=== PATIENT | male | born 1960 | race Caucasian/White ===

== ENCOUNTER 2021-04-29 06:24 | Outpatient (REF) | payer OTHER, SELFPAY ==
[2021-04-29 07:28] LABS: MANUAL DIFF FLAG NO
[2021-04-29 07:32] LABS: Basophils Percent Auto 0.5 % (0-2); Eosinophils Absolute Auto 0.3 X10*3/uL (0.0-0.4); Eosinophils Percent Auto 3.9 % (0-4); Hematocrit 45.3 % (42-52); Hemoglobin 14.6 g/dl (14.0-18.0); Imm Gran Abs Auto 0.03 X10*3/uL (0.00-0.03); Imm Gran Pct Auto 0.5 % (0.0-0.4); Lymphocytes Absolute Auto 1.4 X10*3/uL (1.2-4.9); Mean Corpuscular HGB Conc 32.2 g/dl (31.0-36.0); Mean Corpuscular Hemoglobin 25.8 pg (27.0-33.0); Mean Platelet Volume 10.4 fL (9.4-12.4); Monocytes Absolute Auto 0.4 X10*3/uL (0.1-1.2); Monocytes Percent Auto 6.2 % (2-11); Neutrophils Absolute Auto 4.5 X10*3/uL (2.0-8.3); Neutrophils Percent Auto 67.9 % (45-73); Platelet Count 173 X10*3/uL (160-400); Red Blood Count 5.66 X10*6/uL (4.60-5.80); Red Cell Distribution Width 13.2 % (11.0-16.0); White Blood Count 6.7 X10*3/uL (4.8-10.8)
[2021-04-29 08:00] LABS: Alanine Aminotransferase 13 U/L (0-40); Albumin Level 4.4 g/dL (3.5-5.0); Alkaline Phosphatase 74 U/L (39-117); Anion Gap 10 (12-20); Aspartate Amino Transferase 15 U/L (5-37); Bilirubin Total 0.4 mg/dL (0.0-1.0); Blood Urea Nitrogen 15 mg/dL (9-16); Calcium 9.1 mg/dL (8.4-10.2); Carbon Dioxide 26 mmol/L (22-29); Chloride 110 mmol/L (96-108); Cholesterol 170 mg/dL; Estimated Glomerular Filt Rate > 60; Glucose Fasting 109 mg/dL (60-99); HDL Cholesterol 41 mg/dL; LDL Cholesterol Calculated 108 mg/dl; Potassium 4.3 mmol/L (3.3-5.1); Sodium 142 mmol/L (135-145); Total Protein 6.9 g/dL (6.5-8.0); Triglycerides 106 mg/dL
[2021-04-29 08:13] LABS: Prostate Specific Antigen 2.04 ng/mL (<0.05-4.0)
== END 2021-04-29 06:25 | disposition home or self-care (01) ==
LOC: HO.LAB 06:24
PROVIDERS: PCP Internal Medicine; Visit Provider Internal Medicine
DX: Z00.00 Encounter for general adult medical examination without abnormal findings (principal); Z13.220 Encounter for screening for lipoid disorders; Z12.5 Encounter for screening for malignant neoplasm of prostate
CPT/HCPCS: 36415; 80053; 80061; 84153; 85025

== ENCOUNTER 2021-06-22 14:56 | Outpatient (REF) | payer OTHER, SELFPAY ==
--- NOTE | ~2021-06-22 | XR_ITS ---
EXAMINATION: XR LUMBOSACRAL SPINE CLINICAL INFORMATION: Right abdominal and back pain COMPARISON: Previous x-ray August 2010 TECHNIQUE: Three views of the lumbosacral spine. FINDINGS: Bone alignment is normal. No fracture or dislocation is seen. There is mild degenerative disc disease at L5-S1. There is lower lumbar spine facet arthritis. XR/XR lumbar spine 2-3V IMPRESSION: Unremarkable examination.
[2021-06-22 15:14] LABS: MANUAL DIFF FLAG NO
[2021-06-22 15:26] LABS: Basophils Percent Auto 0.5 % (0-2); Eosinophils Absolute Auto 0.2 X10*3/uL (0.0-0.4); Eosinophils Percent Auto 2.7 % (0-4); Hematocrit 43.8 % (42-52); Imm Gran Abs Auto 0.03 X10*3/uL (0.00-0.03); Imm Gran Pct Auto 0.5 % (0.0-0.4); Lymphocytes Absolute Auto 1.8 X10*3/uL (1.2-4.9); Lymphocytes Percent Auto 27.5 % (20-40); Mean Corpuscular Hemoglobin 25.5 pg (27.0-33.0); Mean Corpuscular Volume 79.9 fL (80-98); Mean Platelet Volume 9.9 fL (9.4-12.4); Monocytes Absolute Auto 0.5 X10*3/uL (0.1-1.2); Monocytes Percent Auto 7.4 % (2-11); Neutrophils Absolute Auto 4.1 X10*3/uL (2.0-8.3); Neutrophils Percent Auto 61.4 % (45-73); Platelet Count 179 X10*3/uL (160-400); Red Blood Count 5.48 X10*6/uL (4.60-5.80); Red Cell Distribution Width 13.2 % (11.0-16.0); White Blood Count 6.6 X10*3/uL (4.8-10.8)
[2021-06-22 15:42] LABS: Alanine Aminotransferase 13 U/L (0-40); Albumin Level 4.6 g/dL (3.5-5.0); Alkaline Phosphatase 89 U/L (39-117); Anion Gap 10 (12-20); Aspartate Amino Transferase 17 U/L (5-37); Bilirubin Total 0.4 mg/dL (0.0-1.0); Blood Urea Nitrogen 16 mg/dL (9-16); C Reactive Protein 0.07 mg/dL (< or = 0.50); Calcium 9.7 mg/dL (8.4-10.2); Carbon Dioxide 26 mmol/L (22-29); Chloride 110 mmol/L (96-108); Estimated Glomerular Filt Rate > 60; Glucose Random 99 mg/dL (60-115); Potassium 4.3 mmol/L (3.3-5.1); Sodium 142 mmol/L (135-145); Total Protein 7.2 g/dL (6.5-8.0)
[2021-06-22 18:01] LABS: Appearance Urine CLEAR; Color Urine YELLOW; Glucose Urine UA NEG (NEG); Leukocyte Esterase Urine NEG (NEG); Nitrite Urine NEG (NEG); PH 5.5 (5.0-8.0); Specific Gravity - Urine >= 1.030 (1.005-1.025); Urine Blood NEG (NEG); Urine Ketones 5 MG/DL (NEG); Urine Protein TRACE MG/DL (NEG-TRACE)
== END 2021-06-22 14:57 | disposition home or self-care (01) ==
LOC: HO.XRAY 14:56
PROVIDERS: PCP Internal Medicine; Visit Provider Internal Medicine
DX: R10.9 Unspecified abdominal pain (principal); M54.9 Dorsalgia, unspecified; Z87.442 Personal history of urinary calculi; Z94.4 Liver transplant status
CPT/HCPCS: 36415; 72100; 80053; 81003; 85025; 86140; 87086

== ENCOUNTER 2021-06-23 07:59 | Outpatient (REF) | payer OTHER, SELFPAY ==
--- NOTE | ~2021-06-23 | US_ITS ---
EXAMINATION: US ABDOMEN COMPLETE CLINICAL INFORMATION: History of liver transplant, abdominal pain, history of kidney stone. COMPARISON: Ultrasound abdomen 08/23/2015 and 06/10/2014. MRI abdomen 07/21/2015. CT abdomen and pelvis 06/09/2015. TECHNIQUE: Real-time imaging of the abdominal viscera. Technically limited study secondary to body habitus. FINDINGS: PANCREAS: Normal. ABDOMINAL AORTA: The proximal, mid, and distal segments are normal in caliber. INFERIOR VENA CAVA: Visualized portions are normal. LIVER: The liver is normal in size. The liver contour is normal. There is diffuse heterogeneous increased liver echogenicity without any focal lesion. No intrahepatic ductal dilatation. There are [address] and MRI on 11/06/2014. They are not visualized at this time. GALLBLADDER: Surgically absent. COMMON BILE DUCT: Normal in caliber measuring 0.4 cm in diameter. RIGHT KIDNEY: There is anechoic cyst in midpole measuring 0.7 x 0.6 x 0.8 cm. No hydronephrosis. No renal calculi or focal parenchymal lesions. The kidney measures 9.3 cm in maximum dimension. LEFT KIDNEY: There is anechoic cyst in lower pole measuring 0.6 x 0.3 x 0.5 cm. No hydronephrosis or renal calculi. The kidney measures 11.7 cm in maximum dimension. SPLEEN: Normal. The spleen measures 11.5 cm in maximum dimension. FREE FLUID: None. US/US abdomen complete IMPRESSION: Bilateral anechoic renal cysts. No echogenic stones or hydronephrosis. Heterogeneous echogenic liver without focal lesion. The gallbladder has been surgically removed.
== END 2021-06-23 08:00 | disposition home or self-care (01) ==
LOC: HO.US 07:59
PROVIDERS: PCP Internal Medicine; Visit Provider Internal Medicine
DX: R10.84 Generalized abdominal pain (principal); Z87.442 Personal history of urinary calculi; Z94.4 Liver transplant status
CPT/HCPCS: 76700

== ENCOUNTER 2021-09-05 11:46 | Outpatient (REF) | payer OTHER, SELFPAY ==
[2021-09-07 16:36] LABS: Transglutaminase Ab IgG <1.0 U/mL; Transglutaminase IgA <1.0 U/mL
[2022-02-23 09:16] LABS: Prometheus IBD SGI SEE SEPARATE REPORT
== END 2021-09-05 11:47 | disposition home or self-care (01) ==
LOC: HO.LAB 11:46
PROVIDERS: PCP Internal Medicine; Referring Provider Internal Medicine; Visit Provider Nurse Practitioner Family
DX: R19.7 Diarrhea, unspecified (principal)
CPT/HCPCS: 36415; 81479; 82397; 83516; 83520; 86140; 88346; 88350

== ENCOUNTER 2021-09-06 09:05 | Outpatient (REF) | payer OTHER, SELFPAY ==
[2021-09-06 13:17] LABS: Leukocytes Stool Qualitative NEGATIVE (NEGATIVE)
== END 2021-09-06 09:06 | disposition home or self-care (01) ==
LOC: HO.LNP 09:05
PROVIDERS: Visit Provider Nurse Practitioner Family
DX: R19.7 Diarrhea, unspecified (principal)
CPT/HCPCS: 87045; 87046; 87177; 87209; 89055

== ENCOUNTER → 2021-10-17 14:58 | Outpatient (BNVA) | payer OTHER, SELFPAY | PROVIDERS: PCP Internal Medicine; Referring Provider Internal Medicine; Visit Provider Nurse Practitioner Family ==

== ENCOUNTER 2021-12-13 09:00 | Day surgery (SDC) | payer OTHER, SELFPAY ==
--- NOTE | 2021-12-12 12:26 | HO.ANESPROP2 ---
Documented by User: Jillian Celeste NP 12/12/21 12:28 HPI - Anesthesia Eval Consult details Narrative: 61yo M for Colonoscopy [facility] Past Medical History Medical History GERD (gastroesophageal reflux disease) Hepatitis C History of cirrhosis of liver History of kidney stones HTN (hypertension) Surgical History Surgical History History of esophagogastroduodenoscopy (EGD) Hx of colonoscopy Hx of liver transplant Social History Social History Household Members: Spouse Alcohol intake: never Patient Tobacco Use Status: Never used Tobacco Use of substances other than those prescribed or required for medical reasons: No Are you DNR?: Yes Advance Directives: No Advance Directives Information Provided: Yes Meds Allergies Allergy/AdvReac Type Severity Reaction Status Date / Time FRUIT, SKINS Allergy Intermediate ITCHING Uncoded 12/07/21 12:35 TONGUE/THROAT Home Medications Medication Instructions Recorded Confirmed Last Taken Type amlodipine 10 mg tablet 1 tab PO DAILY 12/07/21 12/07/21 Unknown History carvedilol 25 mg tablet 1 tab PO BID 12/07/21 12/07/21 Unknown History cholecalciferol (vitamin D3) 50 1 cap PO DAILY 12/07/21 12/07/21 Unknown History mcg (2,000 unit) capsule entecavir 1 mg tablet 1 tab PO DAILY 12/07/21 12/07/21 Unknown History lisinopril 10 mg tablet 1 tab PO DAILY 12/07/21 12/07/21 Unknown History methylcellulose (laxative) 500 mg 1 tab PO DAILY 12/07/21 12/07/21 Unknown History tablet (Citrucel) mycophenolate mofetil 500 mg tablet 1 tab PO BID 12/07/21 12/07/21 Unknown History tacrolimus 1 mg capsule, 1 cap PO BID 12/07/21 12/13/21 12/13/21 08:00 History immediate-release Exam Exam Date and Time: December 12, 2021 1226 Pertinent Lab Results Pertinent Lab Results: Laboratory Tests 06/22/21 06/22/21 15:11 15:11 WBC 6.6 Hgb 14.0 Hct 43.8 Plt Count 179 Sodium 142 Potassium 4.3 Chloride 110 H Carbon Dioxide 26 BUN 16 Creatinine 0.96 Assessment and Plan Assessment Anesthesia Assessment: Chart Reviewed Documented by User: Janice Dey MD 12/13/21 09:29 [facility] Past Medical History Medical History GERD (gastroesophageal reflux disease) Hepatitis C History of cirrhosis of liver History of kidney stones HTN (hypertension) Surgical History Surgical History History of esophagogastroduodenoscopy (EGD) Hx of colonoscopy Hx of liver transplant History of Problems with Anesthesia: No Social History Social History Household Members: Spouse Alcohol intake: never Patient Tobacco Use Status: Never used Tobacco Use of substances other than those prescribed or required for medical reasons: No Are you DNR?: Yes Advance Directives: No Advance Directives Information Provided: Yes Meds Allergies Allergy/AdvReac Type Severity Reaction Status Date / Time FRUIT, SKINS Allergy Intermediate ITCHING Uncoded 12/07/21 12:35 TONGUE/THROAT Home Medications Medication Instructions Recorded Confirmed Last Taken Type amlodipine 10 mg tablet 1 tab PO DAILY 12/07/21 12/07/21 Unknown History carvedilol 25 mg tablet 1 tab PO BID 12/07/21 12/07/21 Unknown History cholecalciferol (vitamin D3) 50 1 cap PO DAILY 12/07/21 12/07/21 Unknown History mcg (2,000 unit) capsule entecavir 1 mg tablet 1 tab PO DAILY 12/07/21 12/07/21 Unknown History lisinopril 10 mg tablet 1 tab PO DAILY 12/07/21 12/07/21 Unknown History methylcellulose (laxative) 500 mg 1 tab PO DAILY 12/07/21 12/07/21 Unknown History tablet (Citrucel) mycophenolate mofetil 500 mg tablet 1 tab PO BID 12/07/21 12/07/21 Unknown History tacrolimus 1 mg capsule, 1 cap PO BID 12/07/21 12/13/21 12/13/21 08:00 History immediate-release Exam Airway Mallampati Class: II TM Dist: >3cm Neck ROM: Full Denture: Upper Partial: Lower Loose/Missing/Broken Teeth: Yes, Upper and Lower Heart: RRR Lungs: CTA Assessment and Plan Assessment Anesthesia Assessment: Anesthesia Plan Discussed Final Anesthetic Review History of Problems with Anesthesia: No NPO: Yes ASA Class: II Final Preanesthetic Review: Meds/Allgs Chart Reviewed, Consent Obtained/Reviewed and Anes Risks/Benef Reviewed Patient Risk: Low Procedure Risk: Low Anesthetic Plan Anesthetic Plan: MAC: Disposition: Standard PACU
[2021-12-13 09:20] VITALS: BMI 25.8
[2021-12-13 09:21] VITALS: BP 147/91; PULSE 62; RESP 16; TEMP 36.2; O2SAT 99
[2021-12-13] MEDS: Lactated Ringers 1,000 ML 100 ML IVCONT (09:27)
--- NOTE | 2021-12-13 09:28 | MHC.SHP ---
Pre-Procedural Eval Section A Date of Service: 12/13/21 Section B Chief Complaint: screening Relevant Family History (Specify if Yes): No Relevant Social History: None Present Medications: see Short Stay Collaborative assessment Medical History: Significant History (GERD (gastroesophageal reflux disease) Hepatitis C History of cirrhosis of liver History of kidney stones HTN (hypertension)) History of Previous Operations: Relevant previous surgery/procedure and date(s) (History of esophagogastroduodenoscopy (EGD) Hx of colonoscopy Hx of liver transplant) Allergies: Allergies Allergy/AdvReac Type Severity Reaction Status Date / Time FRUIT, SKINS Allergy Intermediate ITCHING Uncoded 12/07/21 12:35 TONGUE/THROAT Review of Systems Sugical H&P ROS: Negative: Constitution, Cardiovascular, Respiratory, Neurological, Psychiatric, Hem-Onc, Allergic/Immunologic, Gastrointestinal, Genitourinary, Musculoskeletal, Integumentary, Endocrine and Eyes/Ears/Nose/Throat Plan I have reviewed the history and physical and performed a pertinent physical examination on my patient. No changes have occurred unless specified.
--- NOTE | 2021-12-13 10:05 | P.BOP_ITS ---
Brief Operative Note Date of Service: 12/13/21 Pre-op diagnosis: screening Post-op diagnosis: same Procedure: see op note Surgeon: Won Silva MD Anesthesia: MAC Was an Superintendent Generating Plant used for this Procedure?: No Estimated blood loss (mL): 0 Condition: stable Disposition: PACU
--- NOTE | 2021-12-13 10:06 | P.OP_ITS ---
Operative Note Operative Note Date of Service: 12/13/21 Narrative: Operative Information Procedure Description: Colonoscopy COLONOSCOPY Instrument: Olympus variable stiffness pediatric scope 190L Colonoscopy Monitoring: Vital signs and clinical assessment, continuous EKG monitoring, Pulse oximetry, Carbon Dioxide monitoring and blood pressure monitoring were done throughout the procedure. Colon withdrawal time was 14 minutes. Procedure: The patient was placed in the left lateral decubitis position and pre-procedure medications were administered. After a digital rectal examination of the ano-rectum, the video colonoscope was inserted into the rectum and advanced through the colon to the cecum/TI. The colonoscope was slowly withdrawn in a retrograde panoramic fashion and the colon mucosa was carefully examined including a retroflexed view of the rectum. Findings and interventions are described below. Procedure Difficulty: easy Findings: Terminal Ileum-normal right sided retroflexion was normal Cecum:normal Ascending Colon: normal Transverse Colon -normal Descending Colon:normal Sigmoid Colon: normal Rectum: Retroflexion with small internal hemorrhoids, grade I Anorectum - normal Colon preparation: [place] Bowel Preparation Scale Right colon; 3 Transverse colon: 3 Left colon; 3 (0 = Unprepared colon segment with mucosa not seen due to solid stool that cannot be cleared. 1 = Portion of mucosa of the colon segment seen, but other areas of the colon segment not well seen due to staining, residual stool and/or opaque liquid. 2 = Minor amount of residual staining, small fragments of stool and/or opaque liquid, but mucosa of colon segment seen well. 3 = Entire mucosa of colon segment seen well with no residual staining, small fragments of stool or opaque liquid) Impression and Post Procedure Diagnosis: internal hemorrhoids Plan: High fiber diet leaflet Avoid straining at stool, epsom salts and sitz bath, anusol supps or cream Repeat Colonoscopy in 10 years or earlier if clinically indicated Above findings were reviewed with the patient and relevant handouts were provided if indicated.
[2021-12-13 10:13] VITALS: BP 113/76; PULSE 56; RESP 18; TEMP 36.4; O2SAT 99
[2021-12-13 10:28] VITALS: BP 108/77; PULSE 62; RESP 16; TEMP 36.4; O2SAT 99
== END 2021-12-13 10:49 | disposition home or self-care (01) ==
PROVIDERS: PCP Internal Medicine; Visit Provider Internal Medicine Gastroenterology
PROC: 0DJD8ZZ Inspection of Lower Intestinal Tract, Via Natural or Artificial Opening Endoscopic (ICD-10-PCS; CPT 45378; principal; 2021-12-13 10:10)
DX: Z12.11 Encounter for screening for malignant neoplasm of colon (principal); R19.7 Diarrhea, unspecified; B19.20 Unspecified viral hepatitis C without hepatic coma; Z94.4 Liver transplant status; K21.9 Gastro-esophageal reflux disease without esophagitis; I10 Essential (primary) hypertension; Z79.899 Other long term (current) drug therapy; Z87.442 Personal history of urinary calculi
CPT/HCPCS: 45378

== ENCOUNTER → 2021-12-27 13:51 | Outpatient (BNVA) | payer OTHER, SELFPAY | PROVIDERS: PCP Internal Medicine; Referring Provider Internal Medicine; Visit Provider Nurse Practitioner Family | DX: Z13.89 Encounter for screening for other disorder (principal) ==

== ENCOUNTER → 2022-12-26 13:41 | Outpatient (BNVA) | payer OTHER, SELFPAY | PROVIDERS: PCP Internal Medicine; Visit Provider Nurse Practitioner Family | DX: Z13.89 Encounter for screening for other disorder (principal) ==

== ENCOUNTER 2022-12-27 13:32 | Outpatient (REF) | payer OTHER, SELFPAY ==
[2022-12-27 15:52] LABS: Alanine Aminotransferase 30 U/L (0-40); Albumin Level 4.5 g/dL (3.5-5.0); Alkaline Phosphatase 100 U/L (39-117); Anion Gap 11 (12-20); Aspartate Amino Transferase 22 U/L (5-37); Bilirubin Total 0.5 mg/dL (0.0-1.0); Blood Urea Nitrogen 20 mg/dL (9-16); Calcium 9.3 mg/dL (8.4-10.2); Carbon Dioxide 27 mmol/L (22-29); Chloride 109 mmol/L (96-108); Estimated Glomerular Filt Rate > 60; Glucose Random 85 mg/dL (60-115); Potassium 4.3 mmol/L (3.3-5.1); Sodium 143 mmol/L (135-145)
== END 2022-12-27 13:33 | disposition home or self-care (01) ==
LOC: HO.LAB 13:32
PROVIDERS: PCP Internal Medicine; Visit Provider Nurse Practitioner Family
DX: K21.9 Gastro-esophageal reflux disease without esophagitis (principal)
CPT/HCPCS: 36415; 80053

== ENCOUNTER 2023-12-26 12:51 | Outpatient (AMB) | payer OTHER, SELFPAY ==
--- NOTE | 2023-12-26 12:54 | A.OFFVIS_ITS ---
Vital Signs 12/26/23 12:57 Height 5 ft 9 in Weight 180 lb 12.465 oz BMI 26.7 BP 127/77 Blood Pressure Location Lt brachial Position Sitting Pulse 70 Intake Visit Reasons: 1 yr follow up Intake Note: Cr presents in the office as a 1 year follow up. CC: He states that he is not having any concerns today! Umbrella Frame Maker Required: No Allergies FRUIT, SKINS Allergy (Intermediate, Uncoded 12/26/23 12:57) ITCHING TONGUE/THROAT HPI HPI 1 yr follow up: Details: LAST VISIT: History of liver transplant History of liver transplant. Will do blood work today. Patient denies any abdominal pain, bloating. Diarrhea Patient states that he only take Citrucel occasionally. Denies any postprandial diarrhea. One episode of diarrhea after eating fast food. Citrucel help. Patient is trying avoid dietary triggers. I will see him in 1 year, sooner on as needed basis. Patient is agreeable to this plan and verbalizes understanding of instructions. He was given the opportunity to ask questions all questions answered. ? Thank you for allowing me to participate in his care Plan Orders Orders Comprehensive Met. Panel Today K21.9 - Gastro-esophageal reflux disease without esophagitis TODAY'S VISIT Patient is here today for follow-up. Patient reports that he has been feeling well since last visit. Recently patient saw his provider for annual checkup after his liver transplant. Patient reports that it has been almost 7 years since he had liver transplant and has been doing well. Patient admits to occasional constipation and trouble with his hemorrhoids, otherwise patient reports no GI concerning symptoms. [facility]MERLY [facility] Medical History History of kidney stones History of cirrhosis of liver GERD (gastroesophageal reflux disease) Hepatitis C HTN (hypertension) Surgical History Hx of colonoscopy History of esophagogastroduodenoscopy (EGD) Hx of liver transplant Social History Household Members: Spouse Alcohol intake: never Patient Tobacco Use Status: Never used Tobacco Review of Systems Const Denies weight gain and Denies weight loss ENT Reports no additional complaints, Denies dysphagia and Denies odynophagia Card Reports no additional complaints Resp Reports no additional complaints GI Denies abdominal pain, Denies belching, Denies melena, Denies bloating, Reports constipation, Denies dysphagia, Denies excessive flatus, Denies dyspepsia, Denies heartburn, Denies diarrhea, Denies loose stools, Denies nausea, Denies odynophagia and Denies vomiting Reports no additional complaints Musc Reports no additional complaints Neuro Reports no additional complaints Psych Reports no additional complaints Endo Reports no additional complaints Physical Exam Vital Signs: Last Vital Signs Pulse 70 12/26/23 12:57 BP 127/77 12/26/23 12:57 BMI result Body Mass Index 26.7 Const General: healthy appearing, no acute distress and well developed Nutritional Appearance: well nourished Orientation/consciousness: patient oriented x3 Resp Effort & Inspection: normal respiratory effort, able to speak in complete sentences, no tracheal deviation and symmetric chest movement Auscultation: clear to auscultation bilaterally Cardio Rate: regular rate GI Inspection: Yes normal to inspection and No distended Palpation (GI): Soft to palpation, not firm, nontender and No hepatosplenomegaly present Auscultation: normal bowel sounds General: Yes no CVA tenderness Back/Spine/Pelvis Back: no CVA tenderness Skin General skin exam: elasticity normal, turgor normal and dry skin Neuro General: patient oriented x3 Psych Appearance: grossly normal Mental Status: mental status grossly normal Assessment & Plan Assessment & Plan (1) History of liver transplant: Code(s): Z94.4 - Liver transplant status (2) Constipation: Code(s): K59.00 - Constipation, unspecified Qualifiers: Constipation type: slow transit constipation Qualified Code(s): K59.01 - Slow transit constipation (3) Hemorrhoids without complication: Code(s): K64.9 - Unspecified hemorrhoids Plan Patient will start taking Colace, will order Proctosol. Patient was encouraged to increase fluid intake and activity to promote better bowel motility. Patient will return in 6 months, sooner on as needed basis. He is agreeable to this plan and verbalizes understanding of instructions. He was given the opportunity to ask questions and all questions answered. Thank you for allowing me to participate in his care Orders: Orders Liver Panel 12/26/23 R74.01 - Elevation of levels of liver transaminase levels Referrals Urology Referral Z87.898 - Personal history of other specified conditions, R39.11 - Hesitancy of micturition Medications: New hydrocortisone 2.5% (Proctosol HC) 1 appl [place] BID-QID PRN 30 grams 2RF hemorrhoids K64.9 - Unspecified hemorrhoids docusate sodium 100 mg PO BEDTIME 90 caps 3RF K59.00 - Constipation, unspecified
[2023-12-26 12:57] VITALS: BP 127/77; PULSE 70; BMI 26.7
== END 2023-12-26 13:30 | disposition home or self-care (01) ==
PROVIDERS: Visit Provider Nurse Practitioner Family
DX: Z94.4 Liver transplant status (principal); K59.01 Slow transit constipation; K64.9 Unspecified hemorrhoids
CPT/HCPCS: 99213

== ENCOUNTER 2023-12-26 12:51 | Outpatient (REF) | payer OTHER, SELFPAY ==
[2023-12-26 14:51] LABS: Alanine Aminotransferase 17 U/L (0-40); Albumin Level 4.4 g/dL (3.5-5.0); Alkaline Phosphatase 93 U/L (39-117); Aspartate Amino Transferase 17 U/L (5-37); Bilirubin Direct 0.2 mg/dL (0.0-0.5); Bilirubin Total 0.5 mg/dL (0.0-1.0); Total Protein 7.2 g/dL (6.5-8.0)
== END 2023-12-26 12:52 | disposition home or self-care (01) ==
LOC: HO.LAB 12:51
PROVIDERS: PCP Internal Medicine; Visit Provider Nurse Practitioner Family
DX: R74.01 Elevation of levels of liver transaminase levels (principal)
CPT/HCPCS: 36415; 80076

== ENCOUNTER 2024-02-25 14:44 | Outpatient (AMB) | payer OTHER, SELFPAY ==
--- NOTE | 2024-02-25 14:56 | A.OFFVIS_ITS ---
Intake Visit Reasons: urinary hesitancy Intake Note: NEW Patient presents today to established treatment for Urinary Hesitance: Meds- None Allergies to Antibiotic- No Known Allergies Blood Thinner- None Post Void Residual: 11 mL Hide Buyer Required: Yes Hide Buyer Name: Jairo Quesada Information Interpreted: non-clinical & clinical Accompanied by: Self / Same As Patient Allergies FRUIT, SKINS Allergy (Intermediate, Uncoded 02/25/24 15:23) ITCHING TONGUE/THROAT Medication List - Last Reconciled 02/25/24 by Yamilex Presley MD amlodipine 1 tab PO DAILY carvedilol 1 tab PO BID cholecalciferol (vitamin D3) 1 cap PO DAILY docusate sodium 100 mg PO BEDTIME hydrocortisone 2.5% (Proctosol HC) 1 appl [place] BID-QID PRN lisinopril 1 tab PO DAILY mycophenolate mofetil 1 tab PO BID tacrolimus 0.5 mg PO BEDTIME tacrolimus 1 mg PO BID tamsulosin (Flomax) 0.4 mg PO BEDTIME HPI Comments Details: Cr is a 63-year-old male who is here for evaluation for BPH and obstructive lower urinary tract symptoms. Past medical history hepatitis C liver cirrhosis, status post liver transplant on immunosuppressive medications. AUA symptoms score - 15; Bladder scan PVR is 11 mL. IIEF - 5 Questionarre - 12 (mild to moderate ED) Bladder scan PVR is 11 mL. Certified safe and vault service mechanic present. Discussed trial of Flomax 0.4 mg daily in the evening. Will check a renal and bladder ultrasound, PSA screening. Follow-up post [facility] Medical History History of kidney stones History of cirrhosis of liver GERD (gastroesophageal reflux disease) Hepatitis C HTN (hypertension) Surgical History Hx of colonoscopy History of esophagogastroduodenoscopy (EGD) Hx of liver transplant Social History Household Members: Spouse Alcohol intake: never Patient Tobacco Use Status: Never used Tobacco Review of Systems Const All systems reviewed & are unremarkable except as noted in HPI and below Reports no additional complaints Eyes Reports no additional complaints ENT Reports no additional complaints Card Reports no additional complaints Resp Reports no additional complaints GI Reports no additional complaints Reports as per HPI Musc Reports no additional complaints Skin/Breast Reports system reviewed and no additional complaints, except as documented Neuro Reports no additional complaints Psych Reports no additional complaints Endo Reports no additional complaints Wilmer/Lymph Reports no additional complaints Aller/Immun Reports no additional complaints Physical Exam Const General: healthy appearing, no acute distress and well developed Orientation/consciousness: patient oriented x3 HEENT Head: Yes normocephalic and Yes atraumatic Eyes Conjunctivae: conjunctivae normal Neck Neck: Yes normal visual inspection Chest Chest palpation & inspection: normal inspection of the chest Resp Effort & Inspection: normal respiratory effort Cardio Rate: regular rate GI Inspection: Yes normal to inspection Palpation (GI): Soft to palpation Neuro General: patient oriented x3 Extrem General: No pedal edema Psych Appearance: grossly normal Affect: normal affect Office Procedures Post Void Residual Post Residual Void Post Void Residual (PVR): 11 [id number]-Rtbp Void Residual by ultrasound Results AMB Urinalysis, Automated UA Leukoctes 0 Bonnie/uL Last Edit by PIERCE Ahmadi on 02/25/24 15:36 UA Nitrite Negative Last Edit by PIERCE Ahmadi on 02/25/24 15:36 UA Urobilinogen 0.2 mg/dL Last Edit by PIERCE Ahmadi on 02/25/24 15:3 6 UA Protein 15 mg/dL Last Edit by PIERCE Ahmadi on 02/25/24 15:36 UA Protein previously reported as 0 Jairo Quesada 02/25/24 15:36 UA pH 5.5 Last Edit by PIERCE Ahmadi on 02/25/24 15:36 UA pH previously reported as 6.0 Jairo Quesada 02/25/24 15:36 UA Blood 0 Carlos/uL Last Edit by PIERCE Ahmadi on 02/25/24 15:36 2+ Jairo Solerz 02/25/24 15:36 UA Blood previously reported as 80 Jairo Dipak 02/25/24 15:36 UA Specific [place] 1.015 Last Edit by PIERCE Ahmadi on 02/25/24 15: 36 UA Ketone Negative Last Edit by PIERCE Ahmadi on 02/25/24 15:36 UA Bilirubin 0 mg/dL Last Edit by PIERCE Ahmadi on 02/25/24 15:36 UA Glucose 0 mg/dL Last Edit by PIERCE Ahmadi on 02/25/24 15:36 Quality Reporting (2019) Benign Prostatic Hyperplasia ([facility] 771) AUA symptom score: 15 Quality of life due to urinary symptoms: If you were to spend the rest of your life with your urinary condition the way it is now, how would you feel about that?: Unhappy Results Reviewed Results Reviewed: Laboratory Last Values Urine pH (Auto) 5.5 02/25/24 15:35 Specific [place] (Auto) 1.015 02/25/24 15:35 Urine Protein (Auto) 15 mg/dL 02/25/24 15:35 Glucose (UA)(Auto) 0 mg/dL 02/25/24 15:35 Urine Ketones (Auto) Negative 02/25/24 15:35 Urine Blood (Auto) 0 Carlos/uL 02/25/24 15:35 Urine Nitrite (Auto) Negative 02/25/24 15:35 Urine Bilirubin (Auto) 0 mg/dL 02/25/24 15:35 Urine Urobilinogen (Auto) 0.2 mg/dL 02/25/24 15:35 Leukocyte Esterase (Auto) 0 Bonnie/uL 02/25/24 15:35 Assessment & Plan Assessment & Plan (1) BPH loc w urin obs/LUTS: Code(s): N40.1 - Benign prostatic hyperplasia with lower urinary tract symptoms Category: Medical (2) Weak urinary stream: Code(s): R39.12 - Poor urinary stream Category: Medical (3) Screening PSA (prostate specific antigen): Code(s): Z12.5 - Encounter for screening for malignant neoplasm of prostate Category: Medical (4) Erectile dysfunction: Code(s): N52.9 - Male erectile dysfunction, unspecified Category: Medical Plan Flomax 0.4 mg daily in the evening. Will check a renal and bladder ultrasound, PSA screening. Follow-up post Orders: Orders PSA,Total (Free>4and<10) Today N40.1 - Benign prostatic hyperplasia with lower urinary tract symptoms, Z12.5 - Encounter for screening for malignant neoplasm of prostate AMB Urinalysis Automated Today Z13.9 - Encounter for screening, unspecified AMB Post Void Residual by ultrasound Today N39.8 - Other specified disorders of urinary system US retroperitoneal comp Today N40.1 - Benign prostatic hyperplasia with lower urinary tract symptoms Medications: New tamsulosin (Flomax) 0.4 mg PO BEDTIME 30 caps 3RF Prostate, urinary flow Patient Instructions: The patient had an opportunity to ask questions regarding treatment plan. The patient expressed understanding and agreement with the above treatment plan. The patient is aware they should contact our office by phone for worsening of their current condition or the appearance of new symptoms. Compliance is encouraged with any medications and followup testing that is ordered. It is a privilege to be allowed the opportunity to participate in the urologic care of your patient. If you have any questions or concerns regarding treatment for the above conditions please do not hesitate to contact me. The office telephone contact is [phone]. This note is constructed in part using voice recognition software. While every effort has been made to ensure accuracy payroll specialist errors may have been included. Yours sincerely, Yamilex Presley MD Coding Level of Care Code New Pt Level 4 (48632) Diagnoses BPH loc w urin obs/LUTS N40.1 Weak urinary stream R39.12 Screening PSA (prostate specific antigen) Z12.5 Erectile dysfunction N52.9 CPT Codes Post Residual Void - PVR CPT Code: 78521-Wffp Void Residual by ultrasound ([id number]) AUA Symptom Score AUA Incomplete emptying - It does not feel like I empty my bladder all the way.: 3 - About half the time Frequency - I have to go again less than two hours after I finish urinating.: 2 - Less than half the time Intermittency - I stop and start again several times when I urinate.: 1 - Less than 1 time in 5 Urgency - It is hard to wait when I have to urinate.: 0 - Not at all Weak stream - I have a weak urinary stream.: 2 - Less than half the time Straining - I have to push or strain to begin urination.: 3 - About half the time Nocturia - I get up to urinate after I go to bed until the time I get up in the morning.: 4 times AUA Symptom Score: 15 Quality of life due to urinary symptoms: If you were to spend the rest of your life with your urinary condition the way it is now, how would you feel about that?: Unhappy Source: Anselmo RIOJAS, Sherri GONZALEZ Jr, [place] MP, et al, and the Measurement Committee of the [employer]. The [employer] symptom index for benign prostatic hyperplasia. J Urol. 1992; 148: 9405-6015. Copyright 1992 [employer]
== END 2024-02-25 15:42 | disposition home or self-care (01) ==
PROVIDERS: PCP Internal Medicine; Visit Provider Urology
DX: N40.1 Benign prostatic hyperplasia with lower urinary tract symptoms (principal); R39.12 Poor urinary stream; Z12.5 Encounter for screening for malignant neoplasm of prostate; N52.9 Male erectile dysfunction, unspecified; Z13.9 Encounter for screening, unspecified
CPT/HCPCS: 99204

== ENCOUNTER → 2024-02-25 14:44 | Outpatient (BNVA) | payer OTHER, SELFPAY | PROVIDERS: PCP Internal Medicine; Visit Provider Urology | DX: N40.1 Benign prostatic hyperplasia with lower urinary tract symptoms (principal); N13.8 Other obstructive and reflux uropathy; R39.12 Poor urinary stream; N52.9 Male erectile dysfunction, unspecified; N39.8 Other specified disorders of urinary system | CPT/HCPCS: 51798; 81003 ==

== ENCOUNTER 2024-06-04 13:36 | Outpatient (REF) | payer OTHER, SELFPAY ==
--- NOTE | ~2024-06-04 | US_ITS ---
EXAMINATION: US RETROPERITONEAL LIMITED (RENAL ONLY) CLINICAL INFORMATION: Benign prostatic hyperplasia with lower urinary tract symptoms. COMPARISON: Ultrasound abdomen 06/23/2021 and 08/23/2015. MR abdomen 07/21/2015. CT abdomen and pelvis 06/09/2015. TECHNIQUE: Real-time imaging of the kidneys. FINDINGS: RIGHT KIDNEY: 10.2 x 5.8 x 5.3 cm (SAG x AP x TRV). The kidney is normal in size, contour, and echogenicity. Renal cortical thickness is normal. No renal calculi or hydronephrosis. There is a 1.5 cm benign Bosniak class I renal cyst in the upper pole with a septated benign Bosniak class II cyst in the mid kidney. Both of these require no additional imaging or follow-up. No solid renal masses are seen. LEFT KIDNEY: 11.1 x 5.3 x 4.2 cm (SAG x AP x TRV). The kidney is normal in size, contour, and echogenicity. Renal cortical thickness is normal. No renal calculi or hydronephrosis. A benign 0.8 cm Bosniak class I renal cyst is noted which requires no additional imaging or follow up. No solid renal masses are seen. US/US renal BI IMPRESSION: Negative exam. There are benign bilateral cysts which need no additional imaging or follow-up. Electronically signed by: Vick Friedman MD 06/11/2024 12:45 AM EDT
[2024-06-04 15:45] LABS: PSA,Total (Free>4and<10) 3.13 ng/mL (0.00-4.00)
== END 2024-06-04 13:37 | disposition home or self-care (01) ==
LOC: HO.US 13:36
PROVIDERS: PCP Internal Medicine; Visit Provider Urology
DX: N40.1 Benign prostatic hyperplasia with lower urinary tract symptoms (principal); Z12.5 Encounter for screening for malignant neoplasm of prostate
CPT/HCPCS: 36415; 76775; 84153

== ENCOUNTER 2024-06-13 14:26 | Outpatient (REF) | payer OTHER, SELFPAY ==
--- NOTE | ~2024-06-13 | US_ITS ---
EXAMINATION: US PELVIS LIMITED (BLADDER) CLINICAL INFORMATION: BPH with lower urinary tract symptoms. COMPARISON: Renal ultrasound 06/04/2024. Ultrasound abdomen complete 06/23/2021. MR abdomen without and with contrast 07/21/2015. CT abdomen and pelvis 06/09/2015. TECHNIQUE: Real-time imaging of the bladder. FINDINGS: BLADDER: Well distended and normal. Bilateral ureteral jets are demonstrated. Prevoid bladder volume is 270 mL. Postvoid bladder volume is 81 mL. The prostate volume is 23.4 mL. A mildly prominent median lobe protrudes into the bladder. US/US bladder IMPRESSION: 81 mL postvoid residual. The prostate is of normal volume. Electronically signed by: Vick Friedman MD 06/20/2024 12:48 AM EDT
== END 2024-06-13 14:27 | disposition home or self-care (01) ==
LOC: HO.US 14:26
PROVIDERS: PCP Internal Medicine; Visit Provider Urology
DX: N40.1 Benign prostatic hyperplasia with lower urinary tract symptoms (principal)
CPT/HCPCS: 76857

== ENCOUNTER 2024-06-25 13:38 | Outpatient (AMB) | payer OTHER, SELFPAY ==
[2024-06-25 13:41] VITALS: BP 110/82; PULSE 66; O2SAT 99; BMI 26.1
--- NOTE | 2024-06-25 13:41 | A.OFFVIS_ITS ---
Vital Signs 06/25/24 13:41 Height 5 ft 9 in Weight 176 lb 12.972 oz BMI 26.1 BP 110/82 Blood Pressure Location Lt brachial Position Sitting Pulse 66 Pulse Source Pulse Oximeter Pulse Oximetry (%) 99 Oxygen Delivery Method Room Air Intake Visit Reasons: 6 mnth follow up Intake Note: Cr presents in office today for a scheduled 6 mos FUV. CC; Cr was rx'd hydrocortisone for hemorrhoids at his last visit. Pt was also rx'd colace. Pt has had a liver panel drawn since his last visit. Pt reports that he has been doing much better since his last visit. Pt denies an y current sx or concerns. 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 Patient was encouraged to increase fluid intake and activity to promote better bowel motility. Patient will return in 6 months, sooner on as needed basis. He is agreeable to this plan and verbalizes understanding of instructions. He was given the opportunity to ask questions and all questions answered. ? Thank you for allowing me to participate in his care Orders Orders Liver Panel 12/26/23 R74.01 Referrals Urology Referral Z87.898, R39.11 Medications New hydrocortisone 2.5% (Proctosol HC) 1 appl [place] BID-QID PRN 30 grams 2RF hemorrhoids K64.9 docusate sodium 100 mg PO BEDTIME 90 caps 3RF K59.00 TODAY'S VISIT Patient is here today for follow-up. Patient reports that he has been doing well. Patient denies any melena, hematochezia. Denies any dyspepsia, dysphagia or odynophagia. Moving his bowels well. Takes Colace daily. No longer has rectal pain or bleeding. His hemorrhoids are under control denies any GI concerning symptoms at this time [facility] Medical History History of kidney stones History of cirrhosis of liver GERD (gastroesophageal reflux disease) Hepatitis C HTN (hypertension) Surgical History Hx of colonoscopy History of esophagogastroduodenoscopy (EGD) Hx of liver transplant Social History Household Members: Spouse Alcohol intake: never Patient Tobacco Use Status: Never used Tobacco Review of Systems Const Denies weight gain and Denies weight loss ENT Reports no additional complaints, Denies dysphagia and Denies odynophagia Card Reports no additional complaints Resp Reports no additional complaints GI Denies abdominal pain, Denies belching, Denies melena, Denies bloating, Denies change in bowel habits, Denies dysphagia, Denies excessive flatus, Denies dyspepsia, Denies heartburn, Denies diarrhea, Denies loose stools, Denies nausea, Denies odynophagia and Denies vomiting Reports no additional complaints Musc Reports no additional complaints Neuro Reports no additional complaints Psych Reports no additional complaints Endo Reports no additional complaints Physical Exam Vital Signs: Last Vital Signs Pulse 66 06/25/24 13:41 BP 110/82 06/25/24 13:41 Pulse Ox 99 06/25/24 13:41 Oxygen Delivery Method Room Air 06/25/24 13:41 BMI result Body Mass Index 26.1 Const General: healthy appearing, no acute distress and well developed Nutritional Appearance: well nourished Orientation/consciousness: patient oriented x3 Resp Effort & Inspection: normal respiratory effort, able to speak in complete sentences, no tracheal deviation and symmetric chest movement Auscultation: clear to auscultation bilaterally Cardio Rate: regular rate GI Inspection: Yes normal to inspection and No distended Palpation (GI): Soft to palpation, not firm, nontender and No hepatosplenomegaly present Auscultation: normal bowel sounds General: Yes no CVA tenderness Back/Spine/Pelvis Back: no CVA tenderness Skin General skin exam: elasticity normal, turgor normal and dry skin Neuro General: patient oriented x3 Psych Appearance: grossly normal Mental Status: mental status grossly normal Assessment & Plan Assessment & Plan (1) History of liver transplant: Code(s): Z94.4 - Liver transplant status (2) Constipation: Code(s): K59.00 - Constipation, unspecified Qualifiers: Constipation type: slow transit constipation Qualified Code(s): K59.01 - Slow transit constipation (3) Hemorrhoids without complication: Code(s): K64.9 - Unspecified hemorrhoids Plan Continue with diet. Continue avoiding Tylenol alcohol. Continue low-fat high- protein diet. Increase fluid intake and activity to promote better bowel motility. Will send patient for abdominal ultrasound to evaluate his liver. His liver enzymes are normal. Patient will follow-up in the office in 6 months, sooner on as needed basis. He is agreeable to this plan and verbalizes understanding of instructions opportunity to questions and all questions answered. Thank you for allowing me to participate in his care Orders: Orders US abdomen limited 06/25/24 Z94.4 - Liver transplant status Medications: Refilled docusate sodium 100 mg PO BEDTIME 90 caps 3RF K59.00 - Constipation, unspecified Coding Level of Care Code Est Pt Level 3 (38007) Diagnoses History of liver transplant Z94.4 Slow transit constipation K59.01 Constipation type: slow transit constipation Hemorrhoids without complication K64.9 Time Spent (min) 25 Comment 15 minutes spent with patient and additional 10 minutes spent reviewing his records
== END 2024-06-25 13:58 | disposition home or self-care (01) ==
PROVIDERS: PCP Internal Medicine; Visit Provider Nurse Practitioner Family
DX: Z94.4 Liver transplant status (principal); K59.01 Slow transit constipation; K64.9 Unspecified hemorrhoids
CPT/HCPCS: 99213

== ENCOUNTER → 2024-06-25 13:38 | Outpatient (BNVA) | payer OTHER, SELFPAY | PROVIDERS: PCP Internal Medicine; Visit Provider Nurse Practitioner Family ==

== ENCOUNTER 2024-07-04 09:58 | Outpatient (REF) | payer OTHER, SELFPAY ==
--- NOTE | ~2024-07-04 | US_ITS ---
EXAMINATION: US ABDOMEN LIMITED CLINICAL INFORMATION: Liver transplant status. COMPARISON: Ultrasound kidneys 06/04/2024. Ultrasound abdomen complete 06/23/2021. MRI abdomen 07/21/2015. CT abdomen and pelvis 06/09/2015. TECHNIQUE: Real-time imaging of the right upper quadrant abdominal viscera. Technically limited study secondary to bowel gas and body habitus. FINDINGS: PANCREAS: The visualized portion of the pancreas head and body are normal, portion of the pancreatic body and tail, not visualized are obscured by bowel gas. LIVER: Limited visualization of the left liver obscured by bowel gas. The liver is normal in size. The liver contour is normal. Parenchymal echogenicity is normal. No focal hepatic lesion. There is no intrahepatic biliary duct dilatation seen. GALLBLADDER: Surgically absent. COMMON BILE DUCT: Normal in caliber measuring 0.3 cm in diameter. RIGHT KIDNEY: There are liver cysts measuring up to 1.1 cm, 0.7 cm and 1.5 cm with septations, these commonly benign, no follow-up imaging is warranted. No hydronephrosis or renal calculi. The kidney measures 10.1 cm in maximum dimension. FREE FLUID: None. US/US abdomen limited IMPRESSION: Exam limited due to bowel gas. 1. No ultrasound explanation for patient's pain symptoms. 2. Liver is normal in size and texture. Limited visualization of the left liver. 3. There are right renal cysts, commonly benign, no follow-up imaging warranted. Electronically signed by: Karely Huynh MD 08/03/2024 05:22 PM [facility] [place]
== END 2024-07-04 09:59 | disposition home or self-care (01) ==
LOC: HO.US 09:58
PROVIDERS: PCP Internal Medicine; Visit Provider Nurse Practitioner Family
DX: Z94.4 Liver transplant status (principal)
CPT/HCPCS: 76705

== ENCOUNTER 2024-07-17 13:43 | Outpatient (AMB) | payer OTHER, SELFPAY ==
--- NOTE | 2024-07-17 12:56 | A.OFFVIS_ITS ---
Intake Visit Reasons: 3m/US/PSA Intake Note: Patient is present for 3m/us/psa Urology Medication:tamsulsoin Antibiotic Allergy:none Blood Thinner:none Wait Staff Required: No Allergies peach Allergy (Intermediate, Verified 07/17/24 13:48) Swelling HPI Comments Details: 07/17/24--Cr is a 63-year-old male who is here for follow up for BPH and obstructive lower urinary tract symptoms. Past medical history hepatitis C liver cirrhosis, status post liver transplant on immunosuppressive medications. I reviewed PSA results. 06/04/24--PSA--3.13 ng/mL. I reviewed kidney and bladder ultrasound results. Kidneys are within normal limits. Plan Flomax 0.4 mg daily. Continue to monitor PSA. Review of chart: 02/25/24--Cr is a 63-year-old male who is here for evaluation for BPH and obstructive lower urinary tract symptoms. Past medical history hepatitis C liver cirrhosis, status post liver transplant on immunosuppressive medications. AUA symptoms score - 15; Bladder scan PVR is 11 mL. IIEF - 5 [place] - 12 (mild to moderate ED) Bladder scan PVR is 11 mL. Certified slag skimmer present. Discussed trial of Flomax 0.4 mg daily in the evening. Will check a renal and bladder ultrasound, PSA screening. Follow-up post [facility] Medical History History of kidney stones History of cirrhosis of liver GERD (gastroesophageal reflux disease) Hepatitis C HTN (hypertension) Surgical History Hx of colonoscopy History of esophagogastroduodenoscopy (EGD) Hx of liver transplant Social History Household Members: Spouse Alcohol intake: never Patient Tobacco Use Status: Never used Tobacco Review of Systems Const All systems reviewed & are unremarkable except as noted in HPI and below Reports no additional complaints Eyes Reports no additional complaints ENT Reports no additional complaints Card Reports no additional complaints Resp Reports no additional complaints GI Reports no additional complaints Reports as per HPI Musc Reports no additional complaints Skin/Breast Reports system reviewed and no additional complaints, except as documented Neuro Reports no additional complaints Psych Reports no additional complaints Endo Reports no additional complaints Wilmer/Lymph Reports no additional complaints Aller/Immun Reports no additional complaints Results AMB Urinalysis, Automated UA Leukoctes 0 Bonnie/uL Last Edit by TOMMIE Macdonald on 07/17/24 14:06 UA Nitrite Negative Last Edit by James Gutierrez [facility] on 07/17/24 14:06 UA Urobilinogen 1 mg/dL Last Edit by James Gutierrez [facility] on 07/17/24 14:06 UA Protein 15 mg/dL Last Edit by James Gutierrez [facility] on 07/17/24 14:06 UA pH 6.0 Last Edit by James Gutierrez [facility] on 07/17/24 14:06 UA Blood 0 Carlos/uL Last Edit [facility] on 07/17/24 14:06 UA Specific [place] 1.025 Last Edit by James Gutierrez [facility] on 07/17/24 14: 06 UA Ketone Negative Last Edit by TOMMIE Macdonald on 07/17/24 14:06 UA Bilirubin 0 mg/dL Last Edit by James Gutierrez [facility] on 07/17/24 14:06 UA Glucose 0 mg/dL Last Edit [facility] on 07/17/24 14:06 Results Reviewed Results Reviewed: Laboratory Last Values Urine pH (Auto) 6.0 07/17/24 14:05 Specific [place] (Auto) 1.025 07/17/24 14:05 Urine Protein (Auto) 15 mg/dL 07/17/24 14:05 Glucose (UA)(Auto) 0 mg/dL 07/17/24 14:05 Urine Ketones (Auto) Negative 07/17/24 14:05 Urine Blood (Auto) 0 Carlos/uL 07/17/24 14:05 Urine Nitrite (Auto) Negative 07/17/24 14:05 Urine Bilirubin (Auto) 0 mg/dL 07/17/24 14:05 Urine Urobilinogen (Auto) 1 mg/dL 07/17/24 14:05 Leukocyte Esterase (Auto) 0 Bonnie/uL 07/17/24 14:05 Date of Service: 06/13/24 US PELVIS LIMITED (BLADDER) CLINICAL INFORMATION: BPH with lower urinary tract symptoms. COMPARISON: Renal ultrasound 06/04/2024. Ultrasound abdomen complete 06/23/2021. MR abdomen without and with contrast 07/21/2015. CT abdomen and pelvis 06/09/2015. TECHNIQUE: Real-time imaging of the bladder. FINDINGS: BLADDER: Well distended and normal. Bilateral ureteral jets are demonstrated. Prevoid bladder volume is 270 mL. Postvoid bladder volume is 81 mL. The prostate volume is 23.4 mL. A mildly prominent median lobe protrudes into the bladder. IMPRESSION: 81 mL postvoid residual. The prostate is of normal volume. Date of Service: 06/04/24 US RETROPERITONEAL LIMITED (RENAL ONLY) CLINICAL INFORMATION: Benign prostatic hyperplasia with lower urinary tract symptoms. COMPARISON: Ultrasound abdomen 06/23/2021 and 08/23/2015. MR abdomen 07/21/2015. CT abdomen and pelvis 06/09/2015. TECHNIQUE: Real-time imaging of the kidneys. FINDINGS: RIGHT KIDNEY: 10.2 x 5.8 x 5.3 cm (SAG x AP x TRV). The kidney is normal in size, contour, and echogenicity. Renal cortical thickness is normal. No renal calculi or hydronephrosis. There is a 1.5 cm benign Bosniak class I renal cyst in the upper pole with a septated benign Bosniak class II cyst in the mid kidney. Both of these require no additional imaging or follow-up. No solid renal masses are seen. LEFT KIDNEY: 11.1 x 5.3 x 4.2 cm (SAG x AP x TRV). The kidney is normal in size, contour, and echogenicity. Renal cortical thickness is normal. No renal calculi or hydronephrosis. A benign 0.8 cm Bosniak class I renal cyst is noted which requires no additional imaging or follow up. No solid renal masses are seen. IMPRESSION: Negative exam. There are benign bilateral cysts which need no additional imaging or follow-up. Assessment & Plan Assessment & Plan (1) BPH loc w urin obs/LUTS: Code(s): N40.1 - Benign prostatic hyperplasia with lower urinary tract symptoms Category: Medical (2) Weak urinary stream: Code(s): R39.12 - Poor urinary stream Category: Medical (3) Screening PSA (prostate specific antigen): Code(s): Z12.5 - Encounter for screening for malignant neoplasm of prostate Category: Medical (4) Erectile dysfunction: Code(s): N52.9 - Male erectile dysfunction, unspecified Category: Medical Plan Flomax 0.4 mg daily in the evening. PSA screening. Follow-up post Orders: Orders AMB Urinalysis Automated 07/17/24 Z13.9 - Encounter for screening, unspecified Medications: Refilled tamsulosin (Flomax) 0.4 mg PO BEDTIME 90 caps 3RF Prostate, urinary flow 90 days Patient Instructions: The patient had an opportunity to ask questions regarding treatment plan. The patient expressed understanding and agreement with the above treatment plan. The patient is aware they should contact our office by phone for worsening of their current condition or the appearance of new symptoms. Compliance is encouraged with any medications and followup testing that is ordered. It is a privilege to be allowed the opportunity to participate in the urologic care of your patient. If you have any questions or concerns regarding treatment for the above conditions please do not hesitate to contact me. The office telephone contact is [phone]. This note is constructed in part using voice recognition software. While every effort has been made to ensure accuracy telegraph repeater mechanic errors may have been included. Yours sincerely, Yamilex Presley MD Coding Level of Care Code Est Pt Level 4 (39086) Diagnoses BPH loc w urin obs/LUTS N40.1 Weak urinary stream R39.12 Screening PSA (prostate specific antigen) Z12.5 Erectile dysfunction N52.9
== END 2024-07-17 14:50 | disposition home or self-care (01) ==
LOC: HO.HUSH 13:44
PROVIDERS: PCP Internal Medicine; Visit Provider Urology
DX: N40.1 Benign prostatic hyperplasia with lower urinary tract symptoms (principal); R39.12 Poor urinary stream; Z12.5 Encounter for screening for malignant neoplasm of prostate; N52.9 Male erectile dysfunction, unspecified
CPT/HCPCS: 99214

== ENCOUNTER → 2024-07-17 13:43 | Outpatient (BNVA) | payer OTHER, SELFPAY | PROVIDERS: PCP Internal Medicine; Visit Provider Urology | DX: N40.1 Benign prostatic hyperplasia with lower urinary tract symptoms (principal); N13.8 Other obstructive and reflux uropathy; R39.12 Poor urinary stream; N52.9 Male erectile dysfunction, unspecified | CPT/HCPCS: 81003 ==

== ENCOUNTER 2024-10-16 13:37 | Outpatient (AMB) | payer OTHER, SELFPAY ==
--- NOTE | 2024-10-16 14:16 | MHC.OFFVIS ---
Intake Visit Reasons: 3M med follow up Intake Note: Patient is Present for Follow Up Med Review Urology Medication: Tamsulosin Antibiotic Allergies: None Blood Thinners: None PVR: 36ml Internal Communications Writer Required: No Accompanied by: Self / Same As Patient Allergies peach Allergy (Intermediate, Verified 10/16/24 14:21) Swelling Medication List - Last Reconciled 10/16/24 by Yamilex Presley MD amlodipine 1 tab PO DAILY carvedilol 1 tab PO BID cholecalciferol (vitamin D3) 1 cap PO DAILY docusate sodium 100 mg PO BEDTIME entecavir 1 mg PO DAILY hydrocortisone 2.5% (Proctosol HC) 1 appl [place] BID-QID PRN lisinopril 1 tab PO DAILY mycophenolate mofetil 1 tab PO BID tacrolimus 0.5 mg PO BEDTIME tacrolimus 1 mg PO BID tadalafil (Cialis) 5 mg PO DAILY tamsulosin (Flomax) 0.4 mg PO BEDTIME 90 days HPI Comments Details: 10/16/24--JUNIOR is here for follow-up BPH and obstructive lower urinary tract symptoms. Past medical history hepatitis C liver cirrhosis, status post liver transplant on immunosuppressive medications. He states he is doing well with urination. He states he did not receive the Cialis 5 mg. I have reviewed side effects for tamsulosin including retrograde ejaculation. Cialis 5 mg sent [facility] pharmacy. PSA results. 06/04/24--PSA--3.13 ng/mL. 07/17/24--Junior is a 63-year-old male who is here for follow up for BPH and obstructive lower urinary tract symptoms. Past medical history hepatitis C liver cirrhosis, status post liver transplant on immunosuppressive medications. I reviewed PSA results. 06/04/24--PSA--3.13 ng/mL. I reviewed kidney and bladder ultrasound results. Kidneys are within normal limits. Plan Flomax 0.4 mg daily. Continue to monitor PSA. 02/25/24--Junior is a 63-year-old male who is here for evaluation for BPH and obstructive lower urinary tract symptoms. Past medical history hepatitis C liver cirrhosis, status post liver transplant on immunosuppressive medications. AUA symptoms score - 15; Bladder scan PVR is 11 mL. IIEF - 5 [place] - 12 (mild to moderate ED) Bladder scan PVR is 11 mL. Certified building trades teacher present. Discussed trial of Flomax 0.4 mg daily in the evening. Will check a renal and bladder ultrasound, PSA screening. [facility] Medical History History of kidney stones History of cirrhosis of liver GERD (gastroesophageal reflux disease) Hepatitis C HTN (hypertension) Surgical History Hx of colonoscopy History of esophagogastroduodenoscopy (EGD) Hx of liver transplant Social History Household Members: Spouse Alcohol intake: never Patient Tobacco Use Status: Never used Tobacco Review of Systems Const All systems reviewed & are unremarkable except as noted in HPI and below Reports no additional complaints Eyes Reports no additional complaints ENT Reports no additional complaints Card Reports no additional complaints Resp Reports no additional complaints GI Reports no additional complaints Reports as per HPI Musc Reports no additional complaints Skin/Breast Reports system reviewed and no additional complaints, except as documented Neuro Reports no additional complaints Psych Reports no additional complaints Endo Reports no additional complaints Wilmer/Lymph Reports no additional complaints Aller/Immun Reports no additional complaints Office Procedures Post Void Residual Post Residual Void Post Void Residual (PVR): 36 [id number] Void Residual by ultrasound Results AMB Urinalysis, Automated UA Leukoctes 0 Bonnie/uL Last Edit by PIERCE Metz on 10/16/24 14:28 UA Nitrite Negative Last Edit by PIERCE Metz on 10/16/24 14:28 UA Urobilinogen 0.2 mg/dL Last Edit by PIERCE Metz on 10/16/24 14:28 UA Protein 15 mg/dL Last Edit by PIERCE Metz on 10/16/24 14:28 UA pH 5.0 Last Edit by PIERCE Metz on 10/16/24 14:28 UA Blood 0 Carlos/uL Last Edit by PIERCE Metz on 10/16/24 14:28 UA Specific [place] 1.025 Last Edit by PIERCE Metz on 10/16/24 14:28 UA Ketone Negative Last Edit by PIERCE Metz on 10/16/24 14:28 UA Bilirubin 0 mg/dL Last Edit by PIERCE Metz on 10/16/24 14:28 UA Glucose 0 mg/dL Last Edit by PIERCE Metz on 10/16/24 14:28 Results Reviewed Results Reviewed: Laboratory Last Values Urine pH (Auto) 5.0 10/16/24 14:22 Specific [place] (Auto) 1.025 10/16/24 14:22 Urine Protein (Auto) 15 mg/dL 10/16/24 14:22 Glucose (UA)(Auto) 0 mg/dL 10/16/24 14:22 Urine Ketones (Auto) Negative 10/16/24 14:22 Urine Blood (Auto) 0 Carlos/uL 10/16/24 14:22 Urine Nitrite (Auto) Negative 10/16/24 14:22 Urine Bilirubin (Auto) 0 mg/dL 10/16/24 14:22 Urine Urobilinogen (Auto) 0.2 mg/dL 10/16/24 14:22 Leukocyte Esterase (Auto) 0 Bonnie/uL 10/16/24 14:22 Assessment & Plan Assessment & Plan (1) BPH loc w urin obs/LUTS: Code(s): N40.1 - Benign prostatic hyperplasia with lower urinary tract symptoms Category: Medical (2) Weak urinary stream: Code(s): R39.12 - Poor urinary stream Category: Medical (3) Erectile dysfunction: Code(s): N52.9 - Male erectile dysfunction, unspecified Category: Medical (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: Code(s): 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 - Immunodeficiency due to drugs; Z79.899 - Other prison (current) drug therapy Category: Medical Plan Cialis 5 mg daily in the morning Continue tamsulosin at bedtime Orders: Orders AMB Post Void Residual by ultrasound Today N40.1 - Benign prostatic hyperplasia with lower urinary tract symptoms AMB Urinalysis Automated Today Z13.9 - Encounter for screening, unspecified Medications: New tadalafil (Cialis) [id number] [facility] [id number] Member [id number] USE COUPON NOT PATIENT'S INSURANCE 5 mg PO DAILY 30 tabs 5RF Refilled tamsulosin (Flomax) 0.4 mg PO BEDTIME 90 days 90 caps 3RF Prostate, urinary flow Patient Instructions: The patient had an opportunity to ask questions regarding treatment plan. The patient expressed understanding and agreement with the above treatment plan. The patient is aware they should contact our office by phone for worsening of their current condition or the appearance of new symptoms. Compliance is encouraged with any medications and followup testing that is ordered. It is a privilege to be allowed the opportunity to participate in the urologic care of your patient. If you have any questions or concerns regarding treatment for the above conditions please do not hesitate to contact me. The office telephone contact is [phone]. This note is constructed in part using voice recognition software. While every effort has been made to ensure accuracy transition specialist errors may have been included. Yours sincerely, Yamilex Presley MD Coding Level of Care Code Est Pt Level 3 (66039) Complex EM visit Add On G2211 Diagnoses BPH loc w urin obs/LUTS N40.1 Weak urinary stream R39.12 Erectile dysfunction N52.9 Immunosuppression due to drug therapy D84.821; Z79.899 CPT Codes Post Residual Void - PVR CPT Code: 85650-Qfrf Void Residual by ultrasound ([id number])
== END 2024-10-16 15:18 | disposition home or self-care (01) ==
PROVIDERS: PCP Internal Medicine; Visit Provider Urology
DX: N40.1 Benign prostatic hyperplasia with lower urinary tract symptoms (principal); R39.12 Poor urinary stream; N52.9 Male erectile dysfunction, unspecified; D84.821 Immunodeficiency due to drugs; Z79.899 Other long term (current) drug therapy; Z13.9 Encounter for screening, unspecified
CPT/HCPCS: 99213

== ENCOUNTER → 2024-10-16 13:37 | Outpatient (BNVA) | payer OTHER, SELFPAY | PROVIDERS: PCP Internal Medicine; Visit Provider Urology | DX: N40.1 Benign prostatic hyperplasia with lower urinary tract symptoms (principal); R39.12 Poor urinary stream; N52.9 Male erectile dysfunction, unspecified; D84.821 Immunodeficiency due to drugs; Z79.899 Other long term (current) drug therapy | CPT/HCPCS: 51798; 81003 ==

== ENCOUNTER 2024-12-31 13:34 | Outpatient (AMB) | payer OTHER, SELFPAY ==
[2024-12-31 13:47] VITALS: BP 142/84; PULSE 68; O2SAT 98; BMI 26.2
--- NOTE | 2024-12-31 13:47 | MHC.OFFVIS ---
Vital Signs 12/31/24 13:47 Height 5 ft 9 in Weight 177 lb 6 oz BMI 26.2 BP 142/84 H Blood Pressure Location Lt brachial Position Sitting Pulse 68 Pulse Source Pulse Oximeter Pulse Oximetry (%) 98 Oxygen Delivery Method Room Air Intake Visit Reasons: 6 month follow up Intake Note: ESTABLISHED PATIENT for mgmt of constipation w/ hx of liver transplant. US done. Chief Complaint; Pt denies any GI concerns at this time and states that his sx are well managed with current therapy. 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 Continue avoiding Tylenol alcohol. Continue low-fat high-protein diet. Increase fluid intake and activity to promote better bowel motility. Will send patient for abdominal ultrasound to evaluate his liver. His liver enzymes are normal. Patient will follow-up in the office in 6 months, sooner on as needed basis. He is agreeable to this plan and verbalizes understanding of instructions opportunity to questions and all questions answered. ? Thank you for allowing me to participate in his care Orders Orders US abdomen limited 06/25/24 Z94.4 Medications Refilled docusate sodium 100 mg PO BEDTIME 90 caps 3RF K59.00 TODAY'S VISIT Patient is here today for follow-up. Patient reports that she has been feeling fairly well. Denies any abdominal pain or discomfort. Bowels have normalize he is taking docusate sodium and is helping. Occasional abdominal bloating depending on what he eats. Ultrasound discussed with patient. No acute processes. Liver is normal size and texture. Patient denies melena, hematochezia, unintentional weight loss or ribbon like stools. Patient denies any dyspepsia, dysphagia or odynophagia [facility] Medical History History of kidney stones History of cirrhosis of liver GERD (gastroesophageal reflux disease) Hepatitis C HTN (hypertension) Surgical History Hx of colonoscopy History of esophagogastroduodenoscopy (EGD) Hx of liver transplant Social History Household Members: Spouse Alcohol intake: never Patient Tobacco Use Status: Never used Tobacco Review of Systems Const Denies weight gain and Denies weight loss ENT Reports no additional complaints, Denies dysphagia and Denies odynophagia Card Reports no additional complaints Resp Reports no additional complaints GI Denies abdominal pain, Denies belching, Denies melena, Denies bloating, Denies change in bowel habits, Denies dysphagia, Denies excessive flatus, Denies dyspepsia, Denies heartburn, Denies diarrhea, Denies loose stools, Denies nausea, Denies odynophagia and Denies vomiting Reports no additional complaints Musc Reports no additional complaints Neuro Reports no additional complaints Psych Reports no additional complaints Endo Reports no additional complaints Physical Exam Vital Signs: Last Vital Signs Pulse 68 12/31/24 13:47 BP 142/84 H 12/31/24 13:47 Pulse Ox 98 12/31/24 13:47 Oxygen Delivery Method Room Air 12/31/24 13:47 BMI result Body Mass Index 26.2 Const General: healthy appearing, no acute distress and well developed Nutritional Appearance: well nourished Orientation/consciousness: patient oriented x3 Resp Effort & Inspection: normal respiratory effort, able to speak in complete sentences, no tracheal deviation and symmetric chest movement Auscultation: clear to auscultation bilaterally Cardio Rate: regular rate GI Inspection: Yes normal to inspection and No distended Palpation (GI): Soft to palpation, not firm, nontender and No hepatosplenomegaly present Auscultation: normal bowel sounds General: Yes no CVA tenderness Back/Spine/Pelvis Back: no CVA tenderness Skin General skin exam: elasticity normal, turgor normal and dry skin Neuro General: patient oriented x3 Psych Appearance: grossly normal Mental Status: mental status grossly normal Results Reviewed Results Reviewed: ULTRASOUND OF ABDOMEN AND PELVIS FINDINGS: PANCREAS: The visualized portion of the pancreas head and body are normal, portion of the pancreatic body and tail, not visualized are obscured by bowel gas. LIVER: Limited visualization of the left liver obscured by bowel gas. The liver is normal in size. The liver contour is normal. Parenchymal echogenicity is normal. No focal hepatic lesion. There is no intrahepatic biliary duct dilatation seen. GALLBLADDER: Surgically absent. COMMON BILE DUCT: Normal in caliber measuring 0.3 cm in diameter. RIGHT KIDNEY: There are liver cysts measuring up to 1.1 cm, 0.7 cm and 1.5 cm with septations, these commonly benign, no follow-up imaging is warranted. No hydronephrosis or renal calculi. The kidney measures 10.1 cm in maximum dimension. FREE FLUID: None. US/US abdomen limited IMPRESSION: Exam limited due to bowel gas. 1. No ultrasound explanation for patient's pain symptoms. 2. Liver is normal in size and texture. Limited visualization of the left liver. 3. There are right renal cysts, commonly benign, no follow-up imaging warranted. Assessment & Plan Assessment & Plan (1) History of liver transplant: Code(s): Z94.4 - Liver transplant status (2) Constipation: Code(s): K59.00 - Constipation, unspecified Qualifiers: Constipation type: slow transit constipation Qualified Code(s): K59.01 - Slow transit constipation (3) Hemorrhoids without complication: Code(s): K64.9 - Unspecified hemorrhoids Plan Continue current diet. Avoid dietary triggers and late night snacking. Patient was encouraged to take fiber daily. Script for Citrucel sent to pharmacy. Ultrasound of the liver normal. Follow-up in the office in 6 months, sooner on as needed basis. He is agreeable to this plan and verbalizes understanding of instructions. He was given the opportunity to ask questions and all questions answered. Thank you for allowing me to participate in his care Medications: New methylcellulose (laxative) (Citrucel) take it with full glass of water 500 mg PO DAILY 90 tabs 4RF K59.00 - Constipation, unspecified Coding Level of Care Code Est Pt Level 3 (83093) Diagnoses History of liver transplant Z94.4 Slow transit constipation K59.01 Constipation type: slow transit constipation Hemorrhoids without complication K64.9 Time Spent (min) 25 Comment 15 minutes spent with patient and additional 10 minutes spent reviewing his records
== END 2024-12-31 14:17 | disposition home or self-care (01) ==
LOC: HO.HGI 13:34
PROVIDERS: PCP Internal Medicine; Visit Provider Nurse Practitioner Family
DX: Z94.4 Liver transplant status (principal); K59.01 Slow transit constipation; K64.9 Unspecified hemorrhoids
CPT/HCPCS: 99213

== ENCOUNTER → 2024-12-31 13:34 | Outpatient (BNVA) | payer OTHER, SELFPAY | PROVIDERS: PCP Internal Medicine; Visit Provider Nurse Practitioner Family ==

== ENCOUNTER 2025-02-13 13:53 | Outpatient (AMB) | payer OTHER, SELFPAY ==
--- NOTE | 2025-02-13 14:08 | MHC.OFFVIS ---
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 Evaluation today the urinalysis negative bladder scan PVR 43 History of Present Illness The patient is a 64-year-old male presenting for follow-up on benign prostatic hyperplasia. His condition is compounded by a medical history of liver cirrhosis due to hepatitis C, for which he underwent a liver transplant and continues on immunosuppressant medication. Currently, the patient has difficulties with obstructive urinary symptoms and erectile dysfunction. Despite being on Tamsulosin and a daily dose of Cialis 5 mg, he reports that the therapeutic effect is suboptimal for sexual intercourse. There is partial improvement but insufficient to achieve successful sexual activity. No major heart conditions have been identified, and PSA levels remain stable. The patient's current concern is enhancing erectile functionality. Results - Urinalysis: Negative - Bladder Scan Post-Void Residual (PVR): 43 mL Discussion Notes I discussed with the patient that while the current pharmaceutical regimen provides some improvement in his erectile function, it may be beneficial to introduce an additional treatment to address his concerns fully. Hence, I proposed the addition of on-demand Viagra at a dosage of 100 mg, to be taken 30 minutes to an hour before engaging in sexual activity. The patient understood the need for this addition and agreed with the management plan. Furthermore, I emphasized the importance of continual monitoring of his PSA levels, with a follow-up planned in six months to ensure stable prostate health. 10/16/24--JUNIOR is here for follow-up BPH and obstructive lower urinary tract symptoms. Past medical history hepatitis C liver cirrhosis, status post liver transplant on immunosuppressive medications. He states he is doing well with urination. He states he did not receive the Cialis 5 mg. I have reviewed side effects for tamsulosin including retrograde ejaculation. Cialis 5 mg sent [facility] pharmacy. PSA results. 06/04/24--PSA--3.13 ng/mL. 07/17/24--Junior is a 63-year-old male who is here for follow up for BPH and obstructive lower urinary tract symptoms. Past medical history hepatitis C liver cirrhosis, status post liver transplant on immunosuppressive medications. I reviewed PSA results. 06/04/24--PSA--3.13 ng/mL. I reviewed kidney and bladder ultrasound results. Kidneys are within normal limits. Plan Flomax 0.4 mg daily. Continue to monitor PSA. 02/25/24--Junior is a 63-year-old male who is here for evaluation for BPH and obstructive lower urinary tract symptoms. Past medical history hepatitis C liver cirrhosis, status post liver transplant on immunosuppressive medications. AUA symptoms score - 15; Bladder scan PVR is 11 mL. IIEF - 5 [place] - 12 (mild to moderate ED) Bladder scan PVR is 11 mL. 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 Discussed trial of Flomax 0.4 mg daily in the evening. Will check a renal and bladder ultrasound, PSA screening. Follow-up post [facility] Medical History History of kidney stones History of cirrhosis of liver GERD (gastroesophageal reflux disease) Hepatitis C HTN (hypertension) Surgical History Hx of colonoscopy History of esophagogastroduodenoscopy (EGD) Hx of liver transplant Social History Household Members: Spouse Alcohol intake: never Patient Tobacco Use Status: Never used Tobacco Review of Systems Const All systems reviewed & are unremarkable except as noted in HPI and below Reports no additional complaints Eyes Reports no additional complaints ENT Reports no additional complaints Card Reports no additional complaints Resp Reports no additional complaints GI Reports no additional complaints Reports as per HPI Musc Reports no additional complaints Skin/Breast Reports system reviewed and no additional complaints, except as documented Neuro Reports no additional complaints Psych Reports no additional complaints Endo Reports no additional complaints Wilmer/Lymph Reports no additional complaints Aller/Immun Reports no additional complaints Assessment & Plan Assessment & Plan (1) BPH loc w urin obs/LUTS: Code(s): N40.1 - Benign prostatic hyperplasia with lower urinary tract symptoms Category: Medical (2) Weak urinary stream: Code(s): R39.12 - Poor urinary stream Category: Medical (3) Erectile dysfunction: Code(s): N52.9 - Male erectile dysfunction, unspecified Category: Medical (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: Code(s): D84.821 - Immunodeficiency due to drugs; Z79.899 - Other assisted (current) drug therapy Category: Medical Plan Cialis 5 mg daily in the morning On demand Viagra 100 mg at time of sexual activity Continue tamsulosin at bedtime Monitor PSA, follow-up in 7 months PSA prior Orders: Orders AMB Urinalysis Automated Today Z13.9 - Encounter for screening, unspecified Medications: Refilled tamsulosin (Flomax) 0.4 mg PO BEDTIME 90 days 90 caps 3RF Prostate, urinary flow tadalafil (Cialis) [id number] [facility] [id number] Member [id number] USE COUPON NOT PATIENT'S INSURANCE 5 mg PO DAILY 30 tabs 5RF Patient Instructions: The patient had an opportunity to ask questions regarding treatment plan. The patient expressed understanding and agreement with the above treatment plan. The patient is aware they should contact our office by phone for worsening of their current condition or the appearance of new symptoms. Compliance is encouraged with any medications and followup testing that is ordered. It is a privilege to be allowed the opportunity to participate in the urologic care of your patient. If you have any questions or concerns regarding treatment for the above conditions please do not hesitate to contact me. The office telephone contact is [phone]. This note is constructed in part using voice recognition software. While every effort has been made to ensure accuracy accounts receivable associate errors may have been included. Yours sincerely, Yamilex Presley MD Scribe Plan - Not visible on output: Patient was informed and verbally consented to the use of an ambient scribe for clinic note documentation during this visit. Coding Diagnoses BPH loc w urin obs/LUTS N40.1 Weak urinary stream R39.12 Erectile dysfunction N52.9 Immunosuppression due to drug therapy D84.821; Z79.899
== END 2025-02-13 14:35 | disposition home or self-care (01) ==
LOC: HO.HUSH 13:54
PROVIDERS: PCP Internal Medicine; Visit Provider Urology
DX: Z13.9 Encounter for screening, unspecified (principal)

== ENCOUNTER → 2025-02-13 13:53 | Outpatient (BNVA) | payer OTHER, SELFPAY | PROVIDERS: PCP Internal Medicine; Visit Provider Urology | DX: N40.1 Benign prostatic hyperplasia with lower urinary tract symptoms (principal); N13.8 Other obstructive and reflux uropathy; R39.12 Poor urinary stream; N52.9 Male erectile dysfunction, unspecified; D84.821 Immunodeficiency due to drugs; Z79.60 Long term (current) use of unspecified immunomodulators and immunosuppressants; Z13.9 Encounter for screening, unspecified | CPT/HCPCS: 81003 ==

== ENCOUNTER 2025-06-09 15:03 | Outpatient (AMB) | payer OTHER, SELFPAY ==
--- NOTE | 2025-06-09 15:05 | MHC.PC.OV ---
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 Accompanied by: Self / Same As Patient Allergies peach Allergy (Intermediate, Verified 06/09/25 15:05) Swelling Medication List - Last Reconciled 06/09/25 by Geoffrey Perez MD amlodipine 1 tab PO DAILY carvedilol 1 tab PO BID cholecalciferol (vitamin D3) 1 cap PO DAILY entecavir 1 mg PO DAILY lisinopril 1 tab PO DAILY tacrolimus 0.5 mg PO BEDTIME tacrolimus 1 mg PO BID tadalafil (Cialis) 5 mg PO DAILY tamsulosin (Flomax) 0.4 mg PO BEDTIME 90 days Tobacco use date assessed: 06/09/25 Dental Screening Dental Screen Date: 06/09/25 Did you have a dental visit in the last 12 months?: No Did you have a dental problem in the last 6 months where you did not have access to dental care?: No Was dental information given to patient?: Patient has dentist HPI HPI Comments History of Present Illness Details The patient is a 64-year-old male presenting with complaints of abdominal pain. He reports experiencing abdominal pain that began approximately two weeks before the visit, which he describes as persistent with a severity rating of 5 out of 10. The pain does not fluctuate in intensity and has been consistently present. Additionally, the patient mentions a history of liver transplant due to cancer 10 years ago and traditionally attends follow-up appointments every six months; however, he acknowledges a one-year gap in follow-up appointments this time. He did not contact his transplant center recently to update them about his condition. The patient also disclosed past hepatitis B and a current medication regimen involving tacrolimus and entecavir for post-transplant care. He denies any nausea, vomiting, or chest pain but reports prior abdominal discomfort. Moreover, he experiences occasional sleep disturbances, waking late at times, which he is not accustomed to. His sleep issues have worsened as he ages, a change he finds adjusting to challenging. His past smoking habit persisted for 30 years, ending about 35 years ago. Other historical issues include hypertension and an enlarged prostate for which he is medicated. Medical History: - Status post liver transplant due to hepatocellular carcinoma - Previous hepatitis B infection - Essential Hypertension - Benign Prostatic Hyperplasia - Sleep disturbance Surgical History: - Liver transplant approximately 10 years ago Medications: - Tacrolimus 1 mg in the morning and 0.5 mg at night for immunosuppression post liver transplant - Entecavir 1 mg at night for post-transplant care - Amlodipine 10 mg in the morning for hypertension - Lisinopril 10 mg at night for hypertension - Tamsulosin for benign prostatic hyperplasia - Tadalafil 5 mg for erectile dysfunction - Carcoreg, unspecified dosage Family History: - Positive family history of cancer in a sister and another unknown family member, specific cancer type not known Social: - 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 - Housing: Lives with his in their own home - Substance use: Former smoker, quit 35 years ago, drinks black coffee - No illicit drug use reported [facility] Medical History (Updated 06/09/25 @ 15:36 by Geoffrey Perez MD) BPH (benign prostatic hyperplasia) Pain in the abdomen History of kidney stones History of cirrhosis of liver GERD (gastroesophageal reflux disease) Hepatitis C HTN (hypertension) Surgical History (Updated 06/09/25 @ 15:33 by Geoffrey Perez MD) Hx of colonoscopy History of esophagogastroduodenoscopy (EGD) Hx of liver transplant Social History Household Members: Spouse Housing: House Alcohol intake: never Patient Tobacco Use Status: Never used Tobacco e-Cigarette/Vaping Use: Never Used service: No Current occupational status: employed 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 1. Little interest or pleasure in doing things: not at all 2. Feeling down, depressed, or hopeless: not at all 3. Trouble falling or staying asleep, or sleeping too much: not at all 4. Feeling tired or having little energy: not at all 5. Poor appetite or overeating: not at all 6. Feeling bad about yourself - or that you are a failure or have let yourself or your family down: not at all 7. Trouble concentrating on things, such as reading the newspaper or watching television: not at all 8. Moving or speaking so slowly that other people could have noticed. Or the opposite - being so fidgety or restless that you have been moving around a lot more than usual: not at all 9. Thoughts that you would be better off or of hurting yourself in some way: not at all Total score: 0 Depression Screening Interpretation: Negative Depression Screening Done: Yes 41159 - PHQ-9 Billing: Yes Source: Developed by Drs. Ari Stuart, Kiarra Pierec, Aj Suárez and colleagues, with an educational karena from [employer]. Thrive Questionnaire Date Thrive assessed: 06/09/25 I am a: Patient What is your living situation today?: I have a steady place to live Within the past 12 months, did the food you bought not last and you didn't have the money to get more?: Never true Within the past 12 months, did you worry whether your food would run out before you got money to buy more?: Never true Do you have trouble paying for medicines?: No Do you have trouble getting transportation to medical appointments?: No Do you have trouble paying your heating and electricity bill?: No Do you have trouble taking care of your child, family member or friend?: No Do you have trouble with day-to-day activities such as bathing, preparing meals, shopping, managing finances, etc.?: No Are you currently unemployed and looking for a job?: No Are you interested in more education?: No THRIVE Score: 0 AUDIT C Alcohol Use Questionnaire (AUDIT-C) 1. How often do you have a drink containing alcohol?: Never 3. How often do you have six or more drinks on one occasion?: Never Total Score: 0 Score Reviewed/Action Taken: Yes GLORIA-7 AMB Questionnaire GLORIA-7 Date GLORIA - 7 assessed: 06/09/25 Feeling nervous, anxious, or on edge: 0 = Not at all Not being able to stop or control worryin = Not at all Worrying too much about different things: 0 = Not at all Trouble relaxin = Not at all Being so restless that it is hard to sit still: 0 = Not at all Becoming easily annoyed or irritable: 0 = Not at all Feeling afraid as if something awful might happen: 0 = Not at all Total GLORIA-7 score (0-4 normal; 5-9 mild; 10-14 moderate; 15-21 severe): 0 Source: Developed by Drs. Ari Stuart, Kiarra Pierce, Aj Suárez and colleagues, with an educational karena from [employer]. GLORIA-7 Assessment Billing GLORIA-7 Assessment Tool: GLORIA-7 Assessment 65391 Review of Systems Const Details: - Gastrointestinal: Reports persistent abdominal pain; Denies nausea, vomiting, diarrhea - Cardiac/Respiratory: Denies chest pain, shortness of breath - Neurologic: Denies headaches - Psychiatric: Denies depression or sadness - Genitourinary: Reports normal urination - Sleep: Reports difficulty with sleep patterns All systems reviewed & are unremarkable except as reviewed in HPI and above Physical exam (Primary Care) Vital Signs: Last Vital Signs Temp 97.6 F 06/09/25 15:13 Pulse 63 06/09/25 15:13 Resp 18 06/09/25 15:13 BP 134/82 06/09/25 15:13 Pulse Ox 97 06/09/25 15:13 Oxygen Delivery Method Room Air 06/09/25 15:13 BMI result Body Mass Index 25.4 Tobacco/Smoking Status: Tobacco use Status Tobacco use date assessed 06/09/25 06/09/25 15:08 Patient Tobacco Use Status Never used Tobacco 06/09/25 15:08 e-Cigarette/Vaping Use Never Used 06/09/25 15:16 PHQ-9: PHQ-9 Score PHQ-9: Total score 0 06/09/25 15:26 Depression Screening Interpretation: Negative Thrive Assessment: Date of Thrive Assessment Date Thrive assessed 06/09/25 06/09/25 15:26 Const Other: General: +Alert and oriented, Well nourished, No acute distress. Eye: Pupils are equal, round and reactive to light, Intact accommodation, Extraocular movements are intact, Normal conjunctiva, Vision unchanged. HENT: Normocephalic, Atraumatic, Tympanic membranes are clear, Normal hearing, Oral mucosa is moist, No pharyngeal erythema, Ear canals patent. Respiratory: Lungs CTA bilaterally, No wheeze, Respirations are non-labored. Cardiovascular: Regular rate, Regular rhythm, S1 auscultated, S2 auscultated, No murmur, Good pulses equal in all extremities, Normal peripheral perfusion, No edema. Gastrointestinal: Soft, Non-tender, Non-distended, Normal bowel sounds, No organomegaly, Scar on abdomen from surgery. Musculoskeletal: Normal range of motion, Normal strength, No tenderness, No swelling, No deformity, Normal gait. Integumentary: Warm, Dry, [place], Intact. Neurologic: Alert, Oriented, Normal sensory, Normal motor function, No focal defects, Cranial Nerves II-XII are grossly intact, Normal deep tendon reflexes. Psychiatric: Cooperative, Appropriate mood & affect, Normal judgment. Coding Level of Care Code New Pt Level 4 (99767) Complex EM visit Add On G2211 Diagnoses Right upper quadrant abdominal pain R10.11 Abdominal location: right upper quadrant Hx of liver transplant Z94.4 Hypertension, unspecified type I10 Hypertension type: unspecified History of cirrhosis of liver Z87.19 Establishing care with new doctor, encounter for Z76.89 Benign prostatic hyperplasia, unspecified whether lower urinary tract symptoms present N40.0 Lower urinary tract symptom presence: unspecified whether lower urinary tract symptoms present Additional Codes GLORIA-7 Assessment Billing - GLORIA-7 Assessment Tool: GLORIA-7 Assessment 27065 ([id number]) PHQ-9 - 86194 - PHQ-9 Billing: Yes ([id number]) Assessment & Plan Assessment & Plan (1) Pain in the abdomen: Comment: Presenting with abdominal pain for the past 2 weeks as right upper quadrant. On exam no tenderness however given his extensive history of liver transplantation secondary to cirrhosis we will obtain a liver ultrasound to rule out any intra-abdominal pathology and obtain liver enzymes to ensure there is no signs of liver damage. Have advised him to contact his GI physicians as well globe them in any case and require labs we will send those over. Code(s): R10.9 - Unspecified abdominal pain Category: Medical Qualifiers: Abdominal location: right upper quadrant Qualified Code(s): R10.11 - Right upper quadrant pain (2) Hx of liver transplant: Comment: - 11/2017 in [place], [place] - I discussed ordering an ultrasound of the abdomen to evaluate the source of abdominal pain. - Plan to conduct blood work to assess liver function and ensure adequate transplant follow-up. - Instructed the patient to contact his transplant clinic for follow-up and coordination of care. - Continue current medication regimen for immunosuppression. Code(s): Z94.4 - Liver transplant status Category: Surgical (3) HTN (hypertension): Comment: - Continue monitoring blood pressure. - Maintain current antihypertensive medication regimen. (Amlodipine, Coreg & Lisinopril) Code(s): I10 - Essential (primary) hypertension Category: Medical Qualifiers: Hypertension type: unspecified Qualified Code(s): I10 - Essential (primary) hypertension (4) History of cirrhosis of liver: Comment: Unclear etiology. 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 Code(s): Z87.19 - Personal history of other diseases of the digestive system Category: Medical (5) Establishing care with new doctor, encounter for: Code(s): Z76.89 - Persons encountering health services in other specified circumstances Plan: - Labs ordered - Preventative care reviewed (6) BPH (benign prostatic hyperplasia): Comment: - Continue current medication, tamsulosin, for symptom management. Code(s): N40.0 - Benign prostatic hyperplasia without lower urinary tract symptoms Category: Medical Qualifiers: Lower urinary tract symptom presence: unspecified whether lower urinary tract symptoms present Qualified Code(s): N40.0 - Benign prostatic hyperplasia without lower urinary tract symptoms Plan: Health maintenance: - Ensure continued postoperative care and monitoring following liver transplant - Recommendations for regular follow-up evaluations with transplant center - Encouraged adherence to antihypertensive therapy for cardiac health Patient was informed and verbally consented to the use of an ambient scribe for clinic note documentation during this visit. Plan During today's visit, we thoroughly reviewed the patient's current complaints and history post liver transplant. I emphasized the importance of maintaining follow-up with the transplant clinic, considering his history and current symptoms of abdominal pain. We agreed upon performing an abdominal ultrasound and conducting blood work to monitor his liver function. The patient understood the need for coordination of care with specialists in [place]. I communicated the normalcy of age-related sleep changes and the importance of adhering to antihypertensive regimens. He was encouraged to continue his current medication management, with a scheduled follow-up in six months to reassess. Orders: Orders Complete Blood Count Auto Diff Today Z76.89 - Persons encountering health services in other specified circumstances, Z94.4 - Liver transplant status Vitamin D 25-OH Total Today Z76.89 - Persons encountering health services in other specified circumstances, Z94.4 - Liver transplant status US abdomen limited Today Z94.4 - Liver transplant status Comprehensive Met. Panel Today Z76.89 - Persons encountering health services in other specified circumstances, Z94.4 - Liver transplant status Hemoglobin A1c Today Z76.89 - Persons encountering health services in other specified circumstances, Z94.4 - Liver transplant status Hepatitis A,B,C Profile Today Z76.89 - Persons encountering health services in other specified circumstances, Z94.4 - Liver transplant status Lipid Panel Today Z76.89 - Persons encountering health services in other specified circumstances, Z94.4 - Liver transplant status Syphilis Screen Today Z76.89 - Persons encountering health services in other specified circumstances, Z94.4 - Liver transplant status TSH reflex Free T4 Today Z76.89 - Persons encountering health services in other specified circumstances, Z94.4 - Liver transplant status Gamma Glutamyl Transpeptidase Today Z87.19 - Personal history of other diseases of the digestive system, Z94.4 - Liver transplant status Medications: Changed From carvedilol 1 tab PO BID To carvedilol 25 mg PO BID From amlodipine 1 tab PO DAILY To amlodipine 10 mg PO DAILY From tacrolimus 1 mg PO BID To tacrolimus 1 mg PO QAM From lisinopril 1 tab PO DAILY To lisinopril 10 mg PO DAILY Patient Instructions: - Contact your transplant clinic in [place] to update them on your current condition and arrange for follow-up care. - Plan for an ultrasound of your abdomen and routine blood tests to monitor your transplant. - Continue taking your medications as prescribed; no changes have been made. - Keep a good sleep routine and adjust to age-related sleep changes. - Return for a follow-up in six months or sooner if your symptoms worsen. - Schedule any recommended procedures or tests as instructed.
[2025-06-09 15:13] VITALS: BP 134/82; PULSE 63; RESP 18; TEMP 36.4; O2SAT 97; BMI 25.4
== END 2025-06-09 15:30 | disposition home or self-care (01) ==
PROVIDERS: PCP Student in an Organized Health Care Education/Training Program; Visit Provider Student in an Organized Health Care Education/Training Program
DX: R10.11 Right upper quadrant pain (principal); Z94.4 Liver transplant status; I10 Essential (primary) hypertension; Z87.19 Personal history of other diseases of the digestive system; Z76.89 Persons encountering health services in other specified circumstances; N40.0 Benign prostatic hyperplasia without lower urinary tract symptoms

== ENCOUNTER 2025-06-09 15:03 | Outpatient (REF) | payer OTHER, SELFPAY ==
[2025-06-09 16:00] LABS: MANUAL DIFF FLAG NO
[2025-06-09 16:12] LABS: Hematocrit 43.4 % (42.0-52.0); Hemoglobin 14.4 g/dl (14.0-18.0); Imm Gran Abs Auto 0.03 X10*3/uL (0.00-0.03); Imm Gran Pct Auto 0.4 % (0.0-0.4); Lymphocytes Absolute Auto 2.0 X10*3/uL (1.2-4.9); Mean Corpuscular HGB Conc 33.2 g/dl (31.0-36.0); Mean Corpuscular Hemoglobin 26.5 pg (27.0-33.0); Mean Corpuscular Volume 79.9 fL (80.0-98.0); NRBC Abs Auto 0.000 X10*3/uL (0.0-0.012); NRBC Pct Auto 0.0 /100WBC (0.0-0.2); Platelet Count 169 X10*3/uL (160-400); Red Blood Count 5.43 X10*6/uL (4.60-5.80); White Blood Count 7.7 X10*3/uL (4.8-10.8)
[2025-06-09 16:30] LABS: Total Hemoglobin (HGBA1C) 3754.8928 umol/L
[2025-06-09 16:52] LABS: Alanine Aminotransferase 25 U/L (0-40); Albumin Level 4.5 g/dL (3.5-5.0); Alkaline Phosphatase 83 U/L (39-117); Anion Gap 9 (12-20); Aspartate Amino Transferase 29 U/L (5-37); Blood Urea Nitrogen 16 mg/dL (9-16); Calcium 9.3 mg/dL (8.4-10.2); Carbon Dioxide 27 mmol/L (22-29); Chloride 113 mmol/L (96-108); Cholesterol 177 mg/dL (<200); Estimated Glomerular Filt Rate > 60; Gamma Glutamyl Transpeptidase 23 U/L (11-51); HDL Cholesterol 41 mg/dL (>40); Potassium 4.7 mmol/L (3.3-5.1); Sodium 144 mmol/L (135-145); Total Protein 7.3 g/dL (6.5-8.0); Triglycerides 95 mg/dL (<150)
[2025-06-10 09:09] LABS: HBS Num1 > 1000.00 mIU/mL (0-7.99); HBc Num1 11.99 S/CO (0.00-0.79); Hepatitis A Antibody IgM 0.23 Index (0-0.79); ~HepC Num1 10.24 S/CO (0.00-0.79); ~Hepatitis A Antibody IgM Nonreactive (Nonreactive); ~Hepatitis B Surface Antibody REACTIVE (Nonreactive); ~Hepatitis C Antibody Reactive (Nonreactive)
[2025-06-10 09:12] LABS: Syphilis Screen Nonreactive (Nonreactive)
[2025-06-10 10:01] LABS: HBsAGNum1 0.37 S/CO (0.00-0.99); Hepatitis B Surface Antigen Negative (Negative)
[2025-06-10 11:13] LABS: HBc Num2 12.01 S/CO; HBc Num3 12.14 S/CO
== END 2025-06-09 15:04 | disposition home or self-care (01) ==
LOC: HO.LAB 15:03
PROVIDERS: PCP Student in an Organized Health Care Education/Training Program; Visit Provider Student in an Organized Health Care Education/Training Program
DX: Z76.89 Persons encountering health services in other specified circumstances (principal); R10.11 Right upper quadrant pain; I10 Essential (primary) hypertension; N40.0 Benign prostatic hyperplasia without lower urinary tract symptoms; Z94.4 Liver transplant status; Z87.19 Personal history of other diseases of the digestive system
CPT/HCPCS: 36415; 80053; 80061; 82306; 82977; 83036; 84443; 85025; 86704; 86706; 86709; 86780; 86803; 87340; 96127

== ENCOUNTER 2025-07-02 13:47 | Outpatient (AMB) | payer OTHER, SELFPAY ==
--- NOTE | 2025-07-02 13:48 | A.OFFVIS_ITS ---
Vital Signs 07/02/25 13:49 Height 5 ft 9 in Weight 171 lb BMI 25.2 BP 126/86 Blood Pressure Location Rt brachial Position Sitting Pulse 64 Pulse Source Pulse Oximeter Pulse Oximetry (%) 98 Oxygen Delivery Method Room Air Intake Visit Reasons: 6m Intake Note: ESTABLISHED PATIENT for mgmt of constipation w/ hx of liver transplant. Chief Complaint; C.O. intermittent RUQ pain and diarrhea. Pt states that he had been doing well and stopped his GI medications as he did not need them at the time. Pt believes he will need to resume these medications now. 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 Avoid dietary triggers and late night snacking. Patient was encouraged to take fiber daily. Script for Citrucel sent to pharmacy. Ultrasound of the liver normal. Follow-up in the office in 6 months, sooner on as needed basis. He is agreeable to this plan and verbalizes understanding of instructions. He was given the opportunity to ask questions and all questions answered. ? Thank you for allowing me to participate in his care New methylcellulose (laxative) (Citrucel) take it with full glass of water 500 mg PO DAILY 90 tabs 4RF K59.00 TODAY'S VISIT: Patient is here today for follow-up. Patient reports to be feeling fairly well. However patient does report that he stopped taking Citrucel and he has been having looser stools. Reports few weeks ago patient had right upper quadrant pain postprandially. Patient does reports feeling bloated after eating certain food. Denies any nausea or vomiting. Denies any fever or chills. One episodes of right upper quadrant pain that lasted about 2 days. Patient reports that it came out in our. Not related to meals. Patient reports feeling very gassy. No nausea or vomiting during that episode. PCP ordered liver enzymes that came back normal. Also ultrasound limited was ordered. Patient has no other episodes besides that one 2 day episode. Otherwise patient reports to be feeling well. 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 Reports to be walking a lot. Patient had normal colonoscopy in November of 2021. Recommendation was made for 10 year follow-up unless clinically necessary. Patient has bowel pattern is related to low fiber diet most likely. Patient reports that when he was taking Citrucel he was moving his bowels normally. 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 [employer] Review of Systems Const Denies weight gain and Denies weight loss ENT Reports no additional complaints, Denies dysphagia and Denies odynophagia Card Reports no additional complaints Resp Reports no additional complaints GI Reports abdominal pain (Right upper quadrant pain 1 episode), Denies belching, Denies melena, Reports bloating, Denies change in bowel habits, Denies dysphagia, Denies excessive flatus, Denies dyspepsia, Denies heartburn, Reports diarrhea, Denies loose stools, Denies nausea, Denies odynophagia and Denies vomiting Reports no additional complaints Musc Reports no additional complaints Neuro Reports no additional complaints Psych Reports no additional complaints Endo Reports no additional complaints Physical Exam Const General: healthy appearing, no acute distress and well developed Nutritional Appearance: well nourished Orientation/consciousness: patient oriented x3 Resp Effort & Inspection: normal respiratory effort, able to speak in complete sentences, no tracheal deviation and symmetric chest movement Auscultation: clear to auscultation bilaterally Cardio Rate: regular rate GI Inspection: Yes normal to inspection and No distended Palpation (GI): Soft to palpation, not firm, nontender and No hepatosplenomegaly present Auscultation: normal bowel sounds General: Yes no CVA tenderness Back/Spine/Pelvis Back: no CVA tenderness Skin General skin exam: elasticity normal, turgor normal and dry skin Neuro General: patient oriented x3 Psych Appearance: grossly normal Mental Status: mental status grossly normal Assessment & Plan Assessment & Plan (1) Hx of liver transplant: Code(s): Z94.4 - Liver transplant status Category: Surgical (2) History of cirrhosis of liver: Code(s): Z87.19 - Personal history of other diseases of the digestive system Category: Medical (3) Pain in the abdomen: Code(s): R10.9 - Unspecified abdominal pain Category: Medical Qualifiers: Abdominal location: right upper quadrant Qualified Code(s): R10.11 - Right upper quadrant pain (4) Postprandial diarrhea: Code(s): K52.9 - Noninfective gastroenteritis and colitis, unspecified Plan Patient will start taking Citrucel. Importance of increasing fiber in his diet was stressed with patient. Right upper quadrant pain most likely related to gas trapping pain in hepatic flexure. Will change ultrasound to complete to evaluate the spleen as well. Last ultrasound in 2021 spleen was normal size. I will send a script for simethicone for patient to take when he feels bloated. Discussed with him also low FODMAP diet. Avoid high FODMAP food as they can for meant and cause increase gas production. Continue following up with his senior net application developer in [place]. His next appointment is in January. We will see him here in February. Patient was encouraged to bring notes and records from [place]. Patient is agreeable to current plan of care and verbalizes understanding of instructions. He was given the opportunity to ask questions and all questions answered. Thank you for allowing me to participate in his care Orders: Orders 2 US abdomen complete Today R10.11 - Right upper quadrant pain, R10.9 - Unspecified abdominal pain Medications: New methylcellulose (laxative) (Citrucel) take it with full glass of water 500 mg PO DAILY 90 tabs 4RF K59.00 - Constipation, unspecified simethicone 125 mg PO BID-QID PRN 120 caps 3RF abdominal distention K21.9 - Gastro-esophageal reflux disease without esophagitis Coding Level of Care Code Est Pt Level 3 (39784) Diagnoses Hx of liver transplant Z94.4 History of cirrhosis of liver Z87.19 Right upper quadrant abdominal pain R10.11 Abdominal location: right upper quadrant Postprandial diarrhea K52.9 Time Spent (min) 25 Comment 15 minutes spent with patient and additional 10 minutes spent reviewing his records
[2025-07-02 13:49] VITALS: BP 126/86; PULSE 64; O2SAT 98; BMI 25.2
== END 2025-07-02 14:18 | disposition home or self-care (01) ==
LOC: HO.HGI 13:47
PROVIDERS: PCP Internal Medicine; Visit Provider Nurse Practitioner Family
DX: Z94.4 Liver transplant status (principal); Z87.19 Personal history of other diseases of the digestive system; R10.11 Right upper quadrant pain; K52.9 Noninfective gastroenteritis and colitis, unspecified
CPT/HCPCS: 99213

== ENCOUNTER 2025-09-09 07:54 | Outpatient (REF) | payer OTHER, SELFPAY ==
--- NOTE | ~2025-09-09 | US_ITS ---
EXAMINATION: US ABDOMEN HISTORY: R10.9 - Unspecified abdominal pain TECHNIQUE: Real-time grayscale ultrasound imaging of the abdomen was performed and images were reviewed. COMPARISON: Comparison is made with the prior examination dated 07/04/2024. FINDINGS: Liver: The liver is normal in size. The liver demonstrates normal homogeneous echotexture. No focal mass or intrahepatic biliary ductal dilatation is identified. There is normal hepatopedal flow in the portal vein. Gallbladder and biliary tree: The patient is status post cholecystectomy. The common bile duct is normal in caliber measuring 4 mm in diameter. Kidneys: The right kidney measures 10.9 cm in length and demonstrates a 1.8 x 1.5 x 1.6 cm cyst at the upper pole and a 2.4 x 1.8 x 1.8 cm cyst in the interpolar region. The left kidney measures 10.9 cm in length and demonstrates a 1.1 x 0.8 x 0.9 cm lower pole cyst. The kidneys are otherwise unremarkable, without evidence of solid masses, hydronephrosis, or calculi. Pancreas: The pancreatic head, neck, and body are unremarkable. The pancreatic tail is obscured by bowel gas. Spleen: The spleen is normal in size and contour, measuring 11.6 cm in length. Abdominal aorta and inferior vena cava: The visualized portions of the abdominal aorta and inferior vena cava are normal in caliber. There is no free fluid in the abdomen. US/US abdomen complete IMPRESSION: Bilateral renal cysts as described. Electronically signed by: Ari Mora MD 09/09/2025 08:49 AM [facility] [place]
--- OUTSIDE RECORDS SUMMARY | 2025-09-09 08:02 | XMS_ITS | Clinical Summary ---
Author Organization [facility] Address [address] [place] [id number] Care Team Providers Care [employer] Worker Name Role Phone Kike Beauchamp Unavailable Geno Polo RN Unavailable Unavailable Kathrin Tan MD Unavailable [phone] Allergies Active Allergy Reactions Criticality Noted Date Comments Nsaids (Non-Steroidal Anti-Inflammatory Drug) Other (See Comments) 05/15/2018 Level of certainty: Very Certain; Other Reaction(s): renal toxicity in interaction with tacrolimus Level of certainty: Very Certain Other Reaction(s): renal toxicity in interaction with tacrolimus Medications cholecalciferol, vitamin D3, (VITAMIN D3) 50 mcg (2,000 unit) cap 1 capsule(s) by mouth daily OTC after done with 12 weeks of ergocalciferol 90 capsule 3 06/12/20 23 Active lisinopriL (ZESTRIL) 10 MG tablet Take 1 tablet (10 mg total) by mouth daily. 90 tablet 3 05/27/20 24 Active carvediloL (COREG) 25 MG tablet Take 1 tablet (25 mg total) by mouth every morning & every evening. 180 tablet 3 05/27/20 24 Active amLODIPine (NORVASC) 10 MG tablet Take 1 tablet (10 mg total) by mouth daily. 90 tablet 3 05/27/20 24 Active tamsulosin (FLOMAX) 0.4 mg cap 24 hr capsule Take 1 capsule (0.4 mg total) by mouth at bedtime. Active tacrolimus (PROGRAF) 0.5 MG capsuleIndicatio ns:Liver transplant recipient (CMS-HCC) Take 1 capsule (0.5 mg total) by mouth every evening. Take in addition to the 1 mg capsule in the morning. 90 capsule 3 04/20/20 25 Active tacrolimus (PROGRAF) 1 MG capsuleIndicatio ns:Liver transplant recipient (CMS-HCC) Take 1 capsule (1 mg total) by mouth every morning. Take in addition to the 0.5 mg capsule in the evening. 90 capsule 3 04/20/20 25 Active entecavir (BARACLUDE) 1 MG tabletIndication s:Liver transplanted (CMS-HCC) Take 1 tablet (1 mg total) by mouth daily. 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 Overview (01/25/2024): with esophageal varices Essential hypertension 09/16/2012 Hepatitis C 09/16/2012 Immunizations Immunization Administration Dates Next Due COVID-19 Vaccine (Pulse 8) Original Formulation (prior to Sep 2021) 09/21/2021,11/04/2020,11/04/2020,10/14 Hepatitis B 02/19/2017, 7,06/14/2016,10/22,09/16/2012 Influenza Vaccine - STANDARD - PF (FLUZONE/FLUARIX/FLULAVAL/AFLURIA) 08/10/2021,11/14/2017,09/26/2016 Pneumococcal Conjugate Vacci ne 13-Valent, (PCV13/PREVNAR 13) 09/26/2016 Pneumococcal polysaccharide vaccine 23-valent (PPSV23/Drrtrtzmf86) 02/19/2017 Tdap Vaccine (BOOSTRIX/ADACEL) 09/26/2016 Social History Tobacco Use Types Packs/Day Years Used Date Smoking Tobacco: Never Assessed Sex and Gender Information Value Date Recorded Sex Assigned at Not on file Legal Sex Male 11:35 PM EST Gender Identity Not on file Sexual Orientation Not on file Last Filed Vital Signs Vital Sign Reading Time Taken Comments Blood Pressure 143/94 01/21/2025 8:03 AM EDT Pulse 66 01/21/2025 8:03 AM EDT Temperature 36.5 C (97.7 F) 01/21/2025 8:03 AM EDT Respiratory Rate 16 01/21/2025 8:03 AM EDT Oxygen Saturation 99% 01/21/2025 8:0 3 AM EDT Inhaled Oxygen Concentration - - Weight 79.5 kg (175 lb 4.3 oz) 01/21/2025 8:03 AM EDT Height 175.3 cm (5' 9 ) 03/21/2017 4:51 PM EDT Height Method: Patient Reported Body Mass Index 25.88 03/21/2017 4:51 PM EDT Plan of Treatment Upcoming Encounters Date Type Department Care Team (Latest Contact Info) Description 01/20/2026 8:00 AM EDT Clinical Support [facility] Trans[facility] [address] [place] [address], [address] [place] [address] Kyle Conner MD [address] [place] [address] In Person with Resource Health Maintenance Due Date Last Done Comments PSA 1961 Prostate Cancer Screening 1961 SDM 1961 Depression Screening 1973 Zoster Vaccine (1 of 2) 1980 CT Colonography 2006 Colonoscopy 2006 Colorectal Cancer Screening 2006 FIT 2006 FOBT 2006 Multitarget Stool DNA (Cologuard) 2006 Sigmoidoscopy 2006 Pneumococcal Vaccine: 50+ Years (3 of 3 - PCV20 or PCV21) 02/19/2022 02/19/2017, 09/26/2016 COVID-19 Vaccine ( season) 2025 09/21/2021, 11/04/2020, 11/04/2020, Additional history exists Influenza Vaccine (#1) 2025 , 11/14/2017, 09/26/2016 Blood Pressure 01/21/2026 01/21/2025 DTaP,Tdap,and Td Vaccines (2 - Td or Tdap) 09/26/2026 09/26/2016 Lipid Panel 01/15/2029 01/16/2024, 05/0 09/2023, 01/16/2024, Additional history exists Hepatitis C Screening Completed 11/23/2016 , 11/22/2016, 02/29/2016, Additional history exists Meningococcal B Vaccines Aged Out No longer eligible based on patient's age to complete this topic Meningococcal Vaccines Aged Out No lo nger eligible based on patient's age to complete this topic Procedures Procedure Name Priority Date/Time Associated Diagnosis Comments HDL CHOLESTEROL Routine 01/16/2024 8:29 AM EDT from Last 3 Months or Most Recently Relevant to Health Maintenance Results * HDL Cholesterol (01/16/2024 8:29 AM EDT) HDL Cholesterol 47 >40 mg/dL CONV ERSION FROM [facility] 01/16/2024 8:29 AM EDT 01/16/2024 10:50 AM EDT us Tera Arvizu MD LAB BLOOD ORDERABLES Final Resul t CONVERSION FROM [facility] from Last 3 Months or Most Recently Relevant to Health Maintenance Insurance [employer] Care Teams [employer] Worker Relationship Specialty Start Date End Date Kike Beauchamp Simone [address] [place] [address] PCP - Insurance Assigned PCP 07/18/23 Geno Polo, RN Registered Nurse Mail Sorting Supervisor 02/25/24 Kathrin Tan MD [address] [address] Infectious Diseases 02/16/24
--- OUTSIDE RECORDS SUMMARY | 2025-09-09 08:02 | XMS_ITS | Encounter Summary ---
Author Organization [facility] Address [address] [place] [id number] Care Team Providers Care Lithoplate Maker Name Role Phone Kike Beauchamp Unavailable Geno Polo RN Unavailable Unavailable Kathrin Tan MD Unavailable Reason for Referral * Diagnostic Imaging (Routine) - Authorized Specialty Diagnoses / Procedures Referred By Contac t Referred To Contact Diagnoses Osteoporosis, unspecified osteoporosis type, unspecified pathological fracture presence Procedures XR DXA Bone Density Hip Pelvis or Spine Axial Kailee Lara MD Phone: tel: fax: Referral ID Status Reason Start Date Expiration Date V isits Requested Visits Authorized [id number] Authorized 02/02/2026 04/28/2027 1 1 Encounter Details Date Type Department Care Team (Latest Contact Info) Description 02/03/2024 Transcribe Orders [facility] [address] Bone Density [facility] [address] [place] [address], [address] [place] [address] Kailee Lara MD [address] [place] [address] Osteoporosis, unspecified osteoporosis type, unspecified pathological fracture presence (Primary Dx) Social History Tobacco Use Types Packs/Day Years Used Date Smoking Tobacco: Never Assessed Sex and Gender Information Value Date Recorded Sex Assigned at Not on file Legal Sex Male 11:35 PM EST Gender Identity Not on file Sexual Orientation Not on file documented as of this encounter Plan of Treatment Upcoming Encounters Date Type Department Care Team (Latest Contact Info) Description 01/20/2026 8:00 AM EDT Clinical Support [facility] [address] Transplant Center [facility] [address] [facility], [address]th [place] [address] Kyle Conner MD [address] [place] [address] In Person with Resource Scheduled Orders Name Type Priority Associated Diagnoses Orde r Schedule XR DXA Bone Density Hip Pelvis or Spine Axial Imaging Routine Osteoporosis, unspecified osteoporosis type, unspecified pathological fracture presence Expected: 02/02/2026, Expires: 02/02/2027 documented as of this encounter Visit Diagnoses Diagnosis Osteoporosis, unspecified osteoporosis type, unspecified pathological fracture presence- Primary documented in this encounter Care Teams Lithoplate Maker Relationship Specialty Start Date End Date Kike Beauchamp [address] [place] [id number] PCP - Insurance Assigned PCP 07/18/23 Geno Polo, EDY Registered Nurse Sand Polisher 02/25/24 Kathrin Tan MD [address] [place] [address] Infectious Diseases 02/16/24 documented as of this encounter
--- OUTSIDE RECORDS SUMMARY | 2025-09-09 08:02 | XMS_ITS ---
Author Organization [facility] Address [address] [place] [address] Care Team Providers Care Six Horse Hitch Driver Name Role Phone Kike Beauchamp Unavailable Geno Polo RN Unavailable Unavailable Kathrin Tan MD Unavailable [phone] Transplant Episode Liver Recipient [facility] [place] - [facility] Organ Received: Liver Transplanted on 11/23/2016 Marked as Active Follow-up on 11/23/2016 Liver CoordinatorGeno Polo RN Phone: N/A Fax: N/A Email: N/A Venetie Ira Organ Diagnosis Organ Primary Contributory Liver Primary Liver Malignancy: Hepato ma (HCC) and Cirrhosis Donor Information Organ ABO Source Meets Risk Criteria HLA Match Mismatches Cross Match Liver Transplanted O DBD No A: B: DR: Liver Donor Serology Results Anti-CMV CMV Nucleic Acid: Negative EBV IgG EBV VCA IgG: Positive Anti-HBcAb HBC Total: Positive HBsAg HBsAg: Negative HBV DNA No results on file Anti-HCV HCV: Positive Anti-HIV I/II HIV Ab: Negative Anti-HTLV I/II HTLV: Not Done RPR/VDRL RPR: Negative EBV IgM EBV VCA IgM: Negative HBsAb No results on file EBNA No results on file Varicella Zoster No results on file HAAB No results on file SARS CoV-2 No results on file Care Team Name Role Phone Fax Email Geno Polo RN Liver Coordinator N/A N/A N/ A Events Post-Transplant Pre-Transplant Admitted: 11/23/2016 Referred: 09/14/2015 Transplanted: 11/23/2016 Evaluation began: 6 Discharged: 11/30/2016 Committee: 02/01/2016 Center waitlisted: 6
== END 2025-09-09 07:55 | disposition home or self-care (01) ==
LOC: HO.US 07:54
PROVIDERS: Absent Provider Student in an Organized Health Care Education/Training Program; PCP Student in an Organized Health Care Education/Training Program; Visit Provider Nurse Practitioner Family
DX: R10.11 Right upper quadrant pain (principal)
CPT/HCPCS: 76700

== ENCOUNTER → 2025-09-09 07:56 | Outpatient (BNV) | payer OTHER, SELFPAY | PROVIDERS: Absent Provider Student in an Organized Health Care Education/Training Program; PCP Student in an Organized Health Care Education/Training Program; Visit Provider Radiology Diagnostic Radiology | DX: R10.9 Unspecified abdominal pain (principal) | CPT/HCPCS: 76700 ==

== ENCOUNTER 2025-09-14 13:36 | Outpatient (AMB) | payer OTHER, SELFPAY ==
--- NOTE | 2025-09-14 14:18 | A.OFFVIS_ITS ---
Intake Visit Reasons: 7M UA/PVR Follow Up(Set) Intake Note: Reason for Visit: PVR/UA Follow Up Urology Meds: Tamsulosin, Tadalafil Blood Thinners: None Labs: None Imaging: None Last PVR: 43ml PVR: 0ml Receiving Distribution Station Operator Required: Yes Receiving Distribution Station Operator Language: Patent Paralegal Name: [id number]--Ypvrm Information Interpreted: non-clinical & clinical Allergies peach Allergy (Intermediate, Verified 07/02/25 13:49) Swelling HPI Comments Details: 09/14/2025--Junior is here for follow-up for obstructive lower urinary tract symptoms from BPH. The patient is on immunosuppressive medication due to history of liver transplant. He is prescribed tamsulosin and Cialis 5 mg daily. He had a recent abdominal ultrasound. History of Present Illness The patient is a 64 year old male presenting for a follow-up visit for obstructive lower urinary tract symptoms secondary to benign prostatic hyperplasia (BPH). He has a history of a liver transplant and is on immunosuppressive medication. For his BPH, he is prescribed tamsulosin and Cialis 5 mg daily. He reports his urine flow is good on these medications. His last prostate-specific antigen (PSA) level was 3.13 on June 04 of the previous year. He had a recent abdominal ultrasound on September 09, 2025, which revealed bilateral renal cysts of no concern. Results - Labs: - PSA (06/04/last year): 3.13. - Urinalysis (today): Negative for leukocytes and blood.- Imaging: - Abdominal ultrasound (09/09/2025): bilateral renal cysts Plan 1. Benign Prostatic Hyperplasia With Lower Urinary Tract Symptoms - The patient's urinary flow is reportedly good on his current medication regimen. - Refills for tamsulosin and Cialis will be provided. - Plan is to follow up in one year. 2. Prostate Cancer Screening 3. Bilateral Renal Cysts - A recent abdominal ultrasound showed bilateral renal cysts, which are not of concern. - No further workup is indicated at this time. 02/13/25--Junior is here for follow-up BPH and over BPH and obstructive lower urinary tract symptoms the patient is on immunosuppressive medication due to history of hepatitis-C liver cirrhosis and status post liver transplant he is prescribed tamsulosin and Cialis 5 mg daily. Evaluation today the urinalysis negative bladder scan PVR 43 Currently, the patient has difficulties with obstructive urinary symptoms and erectile dysfunction. Despite being on Tamsulosin and a daily dose of Cialis 5 mg, he reports that the therapeutic effect is suboptimal for sexual intercourse. There is partial improvement but insufficient to achieve successful sexual activity. PSA levels remain stable. The patient's current concern is enhancing erectile functionality. I proposed the addition of on-demand Viagra at a dosage of 100 mg, to be taken 30 minutes to an hour before engaging in sexual activity. Results - Urinalysis: Negative - Bladder Scan Post-Void Residual (PVR): 43 mL 10/16/24--JUNIOR is here for follow-up BPH and obstructive lower urinary tract symptoms. Past medical history hepatitis C liver cirrhosis, status post liver transplant on immunosuppressive medications. He states he is doing well with urination. He states he did not receive the Cialis 5 mg. I have reviewed side effects for tamsulosin including retrograde ejaculation. Cialis 5 mg sent [facility] pharmacy. PSA results. 06/04/24--PSA--3.13 ng/mL. 07/17/24--Junior is a 63-year-old male who is here for follow up for BPH and obstructive lower urinary tract symptoms. Past medical history hepatitis C liver cirrhosis, status post liver transplant on immunosuppressive medications. I reviewed PSA results. 06/04/24--PSA--3.13 ng/mL. I reviewed kidney and bladder ultrasound results. Kidneys are within normal limits. Plan Flomax 0.4 mg daily. Continue to monitor PSA. 02/25/24--Junior is a 63-year-old male who is here for evaluation for BPH and obstructive lower urinary tract symptoms. Past medical history hepatitis C l iver cirrhosis, status post liver transplant on immunosuppressive medications. AUA symptoms score - 15; Bladder scan PVR is 11 mL. IIEF - 5 [place] - 12 (mild to moderate ED) Bladder scan PVR is 11 mL. Certified remodeler present. Discussed trial of Flomax 0.4 mg daily in the evening. Will check a renal and bladder ultrasound, PSA screening. 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 Review of Systems Const All systems reviewed & are unremarkable except as noted in HPI and below Reports no additional complaints Eyes Reports no additional complaints ENT Reports no additional complaints Card Reports no additional complaints Resp Reports no additional complaints GI Reports no additional complaints Reports as per HPI Musc Reports no additional complaints Skin/Breast Reports system reviewed and no additional complaints, except as documented Neuro Reports no additional complaints Psych Reports no additional complaints Endo Reports no additional complaints Wilmer/Lymph Reports no additional complaints Aller/Immun Reports no additional complaints Office Procedures Post Void Residual Post Residual Void Post Void Residual (PVR): 0 [id number] Void Residual by ultrasound Results AMB Urinalysis, Automated UA Leukoctes 0 Bonnie/uL Last Edit by Kira Navarrete [facility] on 09/14/25 14:34 UA Nitrite Negative Last Edit by Kira Navarrete [facility] on 09/14/25 14:34 UA Urobilinogen 0.2 mg/dL Last Edit by Kira Navarrete, A on 09/14/25 14:3 4 UA Protein 0 mg/dL Last Edit by Kira Navarrete [facility] on 09/14/25 14:34 UA pH 6.0 Last Edit by Kira Navarrete A on 09/14/25 14:34 UA Blood 0 Carlos/uL Last Edit by Kira Navarrete [facility] on 09/14/25 14:34 UA Specific [place] 1.025 Last Edit by Kira Navarrete [facility] on 09/14/25 14: 34 UA Ketone Negative Last Edit by Kira Navarrete, A on 09/14/25 14:34 UA Bilirubin 0 mg/dL Last Edit by Kira Navarrete [facility] on 09/14/25 14:34 UA Glucose 0 mg/dL Last Edit by PIERCE Metz on 09/14/25 14:34 Results Reviewed Results Reviewed: Laboratory Last Values Urine pH (Auto) 6.0 09/14/25 14:33 Specific [place] (Auto) 1.025 09/14/25 14:33 Urine Protein (Auto) 0 mg/dL 09/14/25 14:33 Glucose (UA)(Auto) 0 mg/dL 09/14/25 14:33 Urine Ketones (Auto) Negative 09/14/25 14:33 Urine Blood (Auto) 0 Carlos/uL 09/14/25 14:33 Urine Nitrite (Auto) Negative 09/14/25 14:33 Urine Bilirubin (Auto) 0 mg/dL 09/14/25 14:33 Urine Urobilinogen (Auto) 0.2 mg/dL 09/14/25 14:33 Leukocyte Esterase (Auto) 0 Bonnie/uL 09/14/25 14:33 Date of Service: 09/09/25 EXAMINATION: US ABDOMEN HISTORY: R10.9 - Unspecified abdominal pain TECHNIQUE: Real-time grayscale ultrasound imaging of the abdomen was performed and images were reviewed. COMPARISON: Comparison is made with the prior examination dated 07/04/2024. FINDINGS: Liver: The liver is normal in size. The liver demonstrates normal homogeneous echotexture. No focal mass or intrahepatic biliary ductal dilatation is identified. There is normal hepatopedal flow in the portal vein. Gallbladder and biliary tree: The patient is status post cholecystectomy. The common bile duct is normal in caliber measuring 4 mm in diameter. Kidneys: The right kidney measures 10.9 cm in length and demonstrates a 1.8 x 1.5 x 1.6 cm cyst at the upper pole and a 2.4 x 1.8 x 1.8 cm cyst in the interpolar region. The left kidney measures 10.9 cm in length and demonstrates a 1.1 x 0.8 x 0.9 cm lower pole cyst. The kidneys are otherwise unremarkable, without evidence of solid masses, hydronephrosis, or calculi. Pancreas: The pancreatic head, neck, and body are unremarkable. The pancreatic tail is obscured by bowel gas. Spleen: The spleen is normal in size and contour, measuring 11.6 cm in length. Abdominal aorta and inferior vena cava: The visualized portions of the abdominal aorta and inferior vena cava are normal in caliber. There is no free fluid in the abdomen. IMPRESSION: Bilateral renal cysts as described. Date of Service: 06/13/24 US PELVIS LIMITED (BLADDER) CLINICAL INFORMATION: BPH with lower urinary tract symptoms. COMPARISON: Renal ultrasound 06/04/2024. Ultrasound abdomen complete 06/23/2021. MR abdomen without and with contrast 07/21/2015. CT abdomen and pelvis 06/09/2015. TECHNIQUE: Real-time imaging of the bladder. FINDINGS: BLADDER: Well distended and normal. Bilateral ureteral jets are demonstrated. Prevoid bladder volume is 270 mL. Postvoid bladder volume is 81 mL. The prostate volume is 23.4 mL. A mildly prominent median lobe protrudes into the bladder. IMPRESSION: 81 mL postvoid residual. The prostate is of normal volume. Date of Service: 06/04/24 US RETROPERITONEAL LIMITED (RENAL ONLY) CLINICAL INFORMATION: Benign prostatic hyperplasia with lower urinary tract symptoms. COMPARISON: Ultrasound abdomen 06/23/2021 and 08/23/2015. MR abdomen 07/21/2015. CT abdomen and pelvis 06/09/2015. TECHNIQUE: Real-time imaging of the kidneys. FINDINGS: RIGHT KIDNEY: 10.2 x 5.8 x 5.3 cm (SAG x AP x TRV). The kidney is normal in size, contour, and echogenicity. Renal cortical thickness is normal. No renal calculi or hydronephrosis. There is a 1.5 cm benign Bosniak class I renal cyst in the upper pole with a septated benign Bosniak class II cyst in the mid kidney. Both of these require no additional imaging or follow-up. No solid renal masses are seen. LEFT KIDNEY: 11.1 x 5.3 x 4.2 cm (SAG x AP x TRV). The kidney is normal in size, contour, and echogenicity. Renal cortical thickness is normal. No renal calculi or hydronephrosis. A benign 0.8 cm Bosniak class I renal cyst is noted which requires no additional imaging or follow up. No solid renal masses are seen. IMPRESSION: Negative exam. There are benign bilateral cysts which need no additional imaging or follow-up. Assessment & Plan Assessment & Plan (1) BPH loc w urin obs/LUTS: Code(s): N40.1 - Benign prostatic hyperplasia with lower urinary tract symptoms Category: Medical (2) Weak urinary stream: Code(s): R39.12 - Poor urinary stream Category: Medical (3) Erectile dysfunction: Code(s): N52.9 - Male erectile dysfunction, unspecified Category: Medical (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: Code(s): D84.821 - Immunodeficiency due to drugs; Z79.899 - Other mud worker (current) drug therapy Category: Medical (5) Screening PSA (prostate specific antigen): Code(s): Z12.5 - Encounter for screening for malignant neoplasm of prostate Category: Medical Plan Plan 1. Benign Prostatic Hyperplasia With Lower Urinary Tract Symptoms - The patient's urinary flow is reportedly good on his current medication regimen. - Refills for tamsulosin and Cialis will be provided. - Plan is to follow up in one year. 2. Prostate Cancer Screening 3. Bilateral Renal Cysts - A recent abdominal ultrasound showed bilateral renal cysts, which are not of concern. - No further workup is indicated at this time. Orders: Orders PSA,Total (Free>4and<10) Today N40.1 - Benign prostatic hyperplasia with lower urinary tract symptoms, Z12.5 - Encounter for screening for malignant neoplasm of prostate AMB Urinalysis Automated Today Z13.9 - Encounter for screening, unspecified AMB Post Void Residual by ultrasound Today N40.0 - Benign prostatic hyperplasia without lower urinary tract symptoms Patient Instructions: The patient had an opportunity to ask questions regarding treatment plan. The patient expressed understanding and agreement with the above treatment plan. The patient is aware they should contact our office by phone for worsening of their current condition or the appearance of new symptoms. Compliance is encouraged with any medications and followup testing that is ordered. It is a privilege to be allowed the opportunity to participate in the urologic care of your patient. If you have any questions or concerns regarding treatment for the above conditions please do not hesitate to contact me. The office telephone contact is [phone]. This note is constructed in part using voice recognition software. While every effort has been made to ensure accuracy die sinker apprentice errors may have been included. Yours sincerely, Yamilex Presley MD Scribe Plan - Not visible on output: Patient was informed and verbally consented to the use of an ambient scribe for clinic note documentation during this visit. Coding Level of Care Code Est Pt Level 4 (63585) Diagnoses BPH loc w urin obs/LUTS N40.1 Weak urinary stream R39.12 Erectile dysfunction N52.9 Immunosuppression due to drug therapy D84.821; Z79.899 Screening PSA (prostate specific antigen) Z12.5 CPT Codes Post Residual Void - PVR CPT Code: 25513-Erob Void Residual by ultrasound ([id number])
== END 2025-09-14 16:35 | disposition home or self-care (01) ==
LOC: HO.HUSH 13:36
PROVIDERS: PCP Internal Medicine; Visit Provider Urology
DX: N40.1 Benign prostatic hyperplasia with lower urinary tract symptoms (principal); R39.12 Poor urinary stream; N52.9 Male erectile dysfunction, unspecified; D84.821 Immunodeficiency due to drugs; Z79.899 Other long term (current) drug therapy; Z12.5 Encounter for screening for malignant neoplasm of prostate; Z13.9 Encounter for screening, unspecified
CPT/HCPCS: 99214

== ENCOUNTER → 2025-09-14 13:36 | Outpatient (BNVA) | payer OTHER, SELFPAY | PROVIDERS: PCP Internal Medicine; Visit Provider Urology | DX: N40.1 Benign prostatic hyperplasia with lower urinary tract symptoms (principal); R39.12 Poor urinary stream; N52.9 Male erectile dysfunction, unspecified; N28.1 Cyst of kidney, acquired; D84.821 Immunodeficiency due to drugs; Z79.899 Other long term (current) drug therapy; Z12.5 Encounter for screening for malignant neoplasm of prostate | CPT/HCPCS: 51798; 81003 ==